=== PATIENT | female | born 1970 | race Caucasian/White ===

== ENCOUNTER 2020-06-18 13:25 | Outpatient (REF) | payer BC, SELFPAY ==
--- NOTE | ~2020-06-18 | MM_ITS ---
EXAMINATION: MM SCREENING DIGITAL BREAST TOMOSYNTHESIS, BILATERAL CLINICAL INFORMATION: Screening. Asymptomatic. The lifetime risk of breast cancer based on the Tyrer-Cuzick Model is 9%. COMPARISON: Mammography: 08/02/2018, 12/05/2016, 05/15/2014 TECHNIQUE: Digital breast tomosynthesis is performed in both the craniocaudal and mediolateral oblique views along with computer-aided detection (CAD). Synthesized 2D images are generated from the tomosynthesis. FINDINGS: There are scattered areas of fibroglandular density (ACR BI-RADS breast composition Category b). There are no significant masses, abnormal calcifications, or other abnormalities. There is chronic stable prominent left axillary node with abundant central fatty hilus similar to prior exams. The skin contours are smooth. MM/MM tomosynthesis screening BI IMPRESSION: No mammographic evidence of malignancy. ASSESSMENT: BI-RADS 2: Benign RECOMMENDATION: Routine annual mammography screening. This patient's information was entered into a reminder system with a target due date for their next mammogram.
== END 2020-06-18 13:26 | disposition home or self-care (01) ==
LOC: HO.MAMMO 13:25
PROVIDERS: Visit Provider Internal Medicine
DX: Z12.31 Encounter for screening mammogram for malignant neoplasm of breast (principal)
CPT/HCPCS: 77063; 77067

== ENCOUNTER 2020-06-26 06:52 | Outpatient (REF) | payer BC, SELFPAY ==
[2020-06-26 07:59] LABS: Alanine Aminotransferase 14 U/L (0-31); Albumin Level 4.3 g/dL (3.5-5.0); Alkaline Phosphatase 64 U/L (39-117); Anion Gap 12 (12-20); Aspartate Amino Transferase 18 U/L (5-31); Bilirubin Total 0.4 mg/dL (0.0-1.0); Blood Urea Nitrogen 15 mg/dL (9-16); Carbon Dioxide 24 mmol/L (22-29); Chloride 109 mmol/L (96-108); Cholesterol 217 mg/dL; Estimated Glomerular Filt Rate > 60; Glucose Fasting 100 mg/dL (60-99); HDL Cholesterol 39 mg/dL; LDL Cholesterol Calculated 142 mg/dl; Potassium 4.3 mmol/L (3.3-5.1); Sodium 141 mmol/L (135-145); Total Protein 7.2 g/dL (6.5-8.0); Triglycerides 183 mg/dL
== END 2020-06-26 06:53 | disposition home or self-care (01) ==
LOC: HO.LAB 06:52
PROVIDERS: PCP Internal Medicine; Visit Provider Internal Medicine
DX: R73.02 Impaired glucose tolerance (oral) (principal)
CPT/HCPCS: 36415; 80053; 80061

== ENCOUNTER 2021-07-31 07:53 | Outpatient (REF) | payer BC, SELFPAY ==
--- NOTE | ~2021-07-31 | MM_ITS ---
EXAMINATION: MM SCREENING DIGITAL BREAST TOMOSYNTHESIS, BILATERAL CLINICAL INFORMATION: Screening. Asymptomatic. The lifetime risk of breast cancer based on the Tyrer-Cuzick Model is 7%. COMPARISON: Mammography: 08/02/2018, 12/05/2016 TECHNIQUE: Digital breast tomosynthesis is performed in both the craniocaudal and mediolateral oblique views along with computer-aided detection (CAD). Synthesized 2D images are generated from the tomosynthesis. FINDINGS: There are scattered areas of fibroglandular density (ACR BI-RADS breast composition Category b). There are no significant masses, abnormal calcifications, or other abnormalities. There are no significant changes from prior exams. MM/MM tomosynthesis screening BI IMPRESSION: No mammographic evidence of malignancy. ASSESSMENT: BI-RADS 1: Negative RECOMMENDATION: Routine annual mammography screening. This patient's information was entered into a reminder system with a target due date for their next mammogram.
== END 2021-07-31 07:54 | disposition home or self-care (01) ==
LOC: HO.MAMMO 07:53
PROVIDERS: PCP Internal Medicine; Visit Provider Internal Medicine
DX: Z12.31 Encounter for screening mammogram for malignant neoplasm of breast (principal)
CPT/HCPCS: 77063; 77067

== ENCOUNTER → 2021-09-19 15:08 | Outpatient (BNVA) | payer BC, SELFPAY | PROVIDERS: PCP Internal Medicine; Visit Provider Obstetrics & Gynecology | DX: Z13.89 Encounter for screening for other disorder (principal) ==

== ENCOUNTER 2021-10-24 15:31 | Outpatient (REF) | payer BC, SELFPAY ==
--- NOTE | ~2021-10-24 | US_ITS ---
EXAMINATION: US PELVIS CLINICAL INFORMATION: Hypertrophy of the uterus COMPARISON: Pelvic ultrasound 05/10/2014 TECHNIQUE: Ultrasound of the pelvis is performed using both transabdominal and transvaginal transducers along with Doppler. Transvaginal imaging is performed due to inadequate visualization transabdominally. FINDINGS: Uterus: The uterus is anteverted and measures 9.6 x 5.3 x 6.3 cm. Nabothian cysts in the cervix. The double wall endometrial thickness is 1.2 mm. The uterus is smooth in contour and has normal myometrial echogenicity. No visible fibroid. Adnexa: Both ovaries are visualized. There is normal color flow to the adnexa. There is no ovarian torsion. There is no pelvic ascites or fluid collection. Right ovary measures 3.8 x 1.9 x 1.6 cm. Physiologic 1.8 cm hemorrhagic right corpus luteum. Left ovary measures 3.0 x 2.0 x 2.2 cm. Physiologic 1.7 cm involuting left corpus luteum. US/US pelvic and transvaginal IMPRESSION: Unremarkable pelvic ultrasound.
== END 2021-10-24 15:32 | disposition home or self-care (01) ==
LOC: HO.US 15:31
PROVIDERS: Visit Provider Obstetrics & Gynecology
DX: N85.2 Hypertrophy of uterus (principal)
CPT/HCPCS: 76830; 76856

== ENCOUNTER 2022-04-07 09:59 | Outpatient (REF) | payer BC, SELFPAY ==
[2022-04-07 10:13] LABS: MANUAL DIFF FLAG NO
[2022-04-07 11:02] LABS: Basophils Absolute Auto 0.1 X10*3/uL (0.0-0.2); Eosinophils Absolute Auto 0.2 X10*3/uL (0.0-0.4); Eosinophils Percent Auto 2.2 % (0-4); Hematocrit 43.2 % (37.0-47.0); Hemoglobin 13.8 g/dl (12.0-16.0); Imm Gran Abs Auto 0.03 X10*3/uL (0.00-0.03); Imm Gran Pct Auto 0.3 % (0.0-0.4); Lymphocytes Percent Auto 33.2 % (20-40); Mean Corpuscular HGB Conc 31.9 g/dl (31.0-35.0); Mean Corpuscular Hemoglobin 29.3 pg (27.0-33.0); Mean Corpuscular Volume 91.7 fL (80.0-98.0); Mean Platelet Volume 10.6 fL (9.4-12.3); Monocytes Absolute Auto 0.7 X10*3/uL (0.1-1.2); Monocytes Percent Auto 7.9 % (2-11); Neutrophils Absolute Auto 5.1 x10*3/uL (2.0-8.3); Neutrophils Percent Auto 55.4 % (45-73); Platelet Count 341 X10*3/uL (160-400); Red Blood Count 4.71 X10*6/uL (4.20-5.50); Red Cell Distribution Width 12.3 % (11.0-16.0); White Blood Count 9.1 X10*3/uL (4.8-10.8)
[2022-04-07 11:33] LABS: Alanine Aminotransferase 15 U/L (0-31); Albumin Level 4.2 g/dL (3.5-5.0); Alkaline Phosphatase 75 U/L (39-117); Anion Gap 11 (12-20); Aspartate Amino Transferase 16 U/L (5-31); Bilirubin Total 0.3 mg/dL (0.0-1.0); Blood Urea Nitrogen 11 mg/dL (9-16); Calcium 9.2 mg/dL (8.4-10.2); Carbon Dioxide 24 mmol/L (22-29); Chloride 109 mmol/L (96-108); Estimated Glomerular Filt Rate > 60; Glucose Random 81 mg/dL (60-115); Potassium 4.5 mmol/L (3.3-5.1); Sodium 139 mmol/L (135-145); Total Protein 6.9 g/dL (6.5-8.0)
== END 2022-04-07 10:00 | disposition home or self-care (01) ==
LOC: HO.XRAY 09:59
PROVIDERS: Absent Provider Physician Assistant; PCP Internal Medicine; Visit Provider Nurse Practitioner
DX: Z01.818 Encounter for other preprocedural examination (principal); M71.331 Other bursal cyst, right wrist
CPT/HCPCS: 36415; 73110; 73130; 80053; 85025

== ENCOUNTER 2022-04-08 08:00 | Day surgery (SDC) | payer BC, SELFPAY ==
[2022-04-03 14:20] VITALS: BMI 36.0
[2022-04-08 08:02] VITALS: BP 163/98; PULSE 83; RESP 20; TEMP 36.4; O2SAT 98
--- NOTE | 2022-04-08 08:35 | P.CONAN_ITS ---
HPI - Anesthesia Eval Consult details Narrative: Screening Colonoscopy [facility] Active Problems Active Problems: All Active Problems (Updated 04/07/22 @ 07:44 by Rickey Sin PA-C) Obese (Acute) Elevated blood pressure reading (Acute) Synovial cyst of right wrist (Acute) Preop examination (Acute) Enlarged uterus (Acute) Well woman exam (Acute) Dyslipidemia (Acute) Polyarthralgia (Acute) Right hip pain (Acute) Right knee pain (Acute) Upper back pain (Acute) Right shoulder pain (Acute) Neck pain (Acute) Impaired glucose tolerance (Acute) Anxiety (Acute) Seasonal allergies (Acute) Depression (Acute) Past Medical History Medical History Anxiety Depression Dyslipidemia Impaired glucose tolerance Neck pain Polyarthralgia Right hip pain Right knee pain Right shoulder pain Seasonal allergies Upper back pain Family History Family History Father Pulmonary fibrosis determined by high resolution computed tomography Mother No problems noted. Paternal Grandmother Stroke Maternal Grandmother Lung cancer Maternal Aunt Lung cancer Maternal Uncle Bladder cancer Family/Other FH: mental illness Family history of problems with anesthesia: No Surgical History Surgical History History of appendectomy History of section History of Problems with Anesthesia: No Social History Social History Housing: House Alcohol intake: current Alcohol intake frequency: holidays/special occasions only Alcohol type: wine Patient Tobacco Use Status: Former Tobacco user Years Smoked: 23 e-Cigarette/Vaping Use: Never Used Are you DNR?: No Advance Directives: No Advance Directives Information Provided: Yes Nutrition Risks: No Nutritional Risk service: No Current occupational status: employed Cognitive needs: No Hearing needs: No Vision needs: Yes Meds Allergies Allergy/AdvReac Type Severity Reaction Status Date / Time bupropion [From WELLBUTRIN] Allergy Severe HIVES Verified 04/03/22 15:51 seasonal allergies Allergy Unknown Unknown Uncoded 04/03/22 15:35 Home Medications Medication Instructions Recorded Confirmed Last Taken Type loratadine 10 mg tablet (Allergy 10 mg PO DAILY 01/30/20 04/03/22 Unknown History Relief (loratadine)) ibuprofen 400 mg tablet 400 mg PO BID 06/28/20 04/03/22 04/04/22 History Exam Exam Date and Time: April 08, 2022 0835 Height,Weight and Vital Signs: Height 5 ft 4 in Weight 95.254 kg Last Vital Signs Temp 97.6 F 04/08/22 08:02 Pulse 83 04/08/22 08:02 Resp 20 04/08/22 08:02 BP 163/98 H 04/08/22 08:02 Pulse Ox 98 04/08/22 08:02 O2 Del Method 04/08/22 08:02 Airway Mallampati Class: II TM Dist: >3cm Neck ROM: Full Loose/Missing/Broken Teeth: No Heart: rrr+[id number] Lungs: cta b/l Assessment and Plan Assessment Anesthesia Assessment: Anesthesia Plan Discussed and Chart Reviewed Final Anesthetic Review Family History of Problems with Anesthesia: No History of Problems with Anesthesia: No NPO: Yes ASA Class: II Final Preanesthetic Review: No Changes in Pt Med Stat, Meds/Allgs Chart Reviewed, Consent Obtained/Reviewed and Anes Risks/Benef Reviewed Patient Risk: Intermediate Procedure Risk: Intermediate Assessment/Block/Sedation in SS: Assess/Block/Sedation-SS Anesthetic Plan Anesthetic Plan: MAC: and Agree w/ Assess. and Plan Disposition: Standard PACU
--- NOTE | 2022-04-08 08:58 | MHC.SHP ---
Pre-Procedural Eval Section A Date of Service: 04/08/22 Section B Chief Complaint: screening Details of Present Illness: also has chronic diarrhea, FH of colon polyps Relevant Family History (Specify if Yes): Yes Relevant Social History: None Present Medications: see Short Stay Collaborative assessment Medical History: Significant History (Anxiety Depression Dyslipidemia Impaired glucose tolerance Neck pain Polyarthralgia Right hip pain Right knee pain Right shoulder pain Seasonal allergies Upper back pain) History of Previous Operations: Relevant previous surgery/procedure and date(s) (appendectomy, c section ) Allergies: Allergies Allergy/AdvReac Type Severity Reaction Status Date / Time bupropion [From WELLBUTRIN] Allergy Severe HIVES Verified 04/03/22 15:51 seasonal allergies Allergy Unknown Unknown Uncoded 04/03/22 15:35 Review of Systems Sugical H&P ROS: Negative: Constitution, Cardiovascular, Respiratory, Neurological, Psychiatric, Hem-Onc, Allergic/Immunologic, Gastrointestinal, Genitourinary, Musculoskeletal, Integumentary, Endocrine and Eyes/Ears/Nose/Throat Exam Surgical H&P Exam: Normal: HEENT, Normal: Heart, Normal: Lungs, Normal: Extremities, Normal: Abdomen, Normal: Skin and Normal: Neurological Plan Diagnosis/Plan: Unchanged I have reviewed the history and physical and performed a pertinent physical examination on my patient. No changes have occurred unless specified. Time Spent With Patient Time: Total time managing care of this patient today ____ minutes.
--- NOTE | 2022-04-08 09:32 | W.PM.OPN ---
Operative Note Operative Note Date of Service: 04/08/22 Narrative: Operative Information Procedure Description: Colonoscopy Indication: screening Anesthesia: MAC COLONOSCOPY Instrument: Olympus variable stiffness pediatric scope 190L Colonoscopy Monitoring: Vital signs and clinical assessment, continuous EKG monitoring, Pulse oximetry, Carbon Dioxide monitoring and blood pressure monitoring were done throughout the procedure. Colon withdrawal time was 12 minutes. Procedure: The patient was placed in the left lateral decubitis position and pre-procedure medications were administered. After a digital rectal examination of the ano-rectum, the video colonoscope was inserted into the rectum and advanced through the colon to the cecum/TI. The colonoscope was slowly withdrawn in a retrograde panoramic fashion and the colon mucosa was carefully examined including a retroflexed view of the rectum. Findings and interventions are described below. Procedure Difficulty: east Findings: Terminal Ileum-normal, bx taken Cecum: granular appearance, bx taken, 10 mm sessile polyp removed with cold snare Ascending Colon: normal Transverse Colon -normal Descending Colon:normal Sigmoid Colon: moderate diverticulosis, random bx taken Rectum: Retroflexion with small internal hemorrhoids, grade I Anorectum - normal Colon preparation: Bellona Bowel Preparation Scale Right colon; 3 Transverse colon: 2 Left colon; 2 (0 = Unprepared colon segment with mucosa not seen due to solid stool that cannot be cleared. 1 = Portion of mucosa of the colon segment seen, but other areas of the colon segment not well seen due to staining, residual stool and/or opaque liquid. 2 = Minor amount of residual staining, small fragments of stool and/or opaque liquid, but mucosa of colon segment seen well. 3 = Entire mucosa of colon segment seen well with no residual staining, small fragments of stool or opaque liquid) Impression and Post Procedure Diagnosis: polyp internal hemorrhoids diverticular disease Plan: High fiber diet leaflet Avoid straining at stool, epsom salts and sitz bath, anusol supps or cream Repeat Colonoscopy in 5 years if adenomatous polyp, 10 yrs if benign or earlier if clinically indicated consider EGD if ongoing issues with diarrheal symptoms Above findings were reviewed with the patient and relevant handouts were provided if indicated.
[2022-04-08 09:35] VITALS: BP 125/66; PULSE 78; RESP 16; TEMP 36.1; O2SAT 98
[2022-04-08 09:50] VITALS: BP 135/77; PULSE 65; RESP 16; TEMP 36.2; O2SAT 96
== END 2022-04-08 10:19 ==
LOC: HO.SSS 08:00
PROVIDERS: PCP Internal Medicine; Visit Provider Internal Medicine Gastroenterology
PROC: 0DJD8ZZ Inspection of Lower Intestinal Tract, Via Natural or Artificial Opening Endoscopic (ICD-10-PCS; CPT 45378; principal; 2022-04-08 09:20)
DX: Z12.11 Encounter for screening for malignant neoplasm of colon (principal); Z83.71 Family history of colonic polyps; K51.40 Inflammatory polyps of colon without complications; K57.30 Diverticulosis of large intestine without perforation or abscess without bleeding; K64.0 First degree hemorrhoids; K59.09 Other constipation; R73.02 Impaired glucose tolerance (oral); J30.2 Other seasonal allergic rhinitis; Z79.899 Other long term (current) drug therapy; Z79.1 Long term (current) use of non-steroidal anti-inflammatories (NSAID); Z88.8 Allergy status to other drugs, medicaments and biological substances; Z87.891 Personal history of nicotine dependence
CPT/HCPCS: 45385; 45380; 88305

== ENCOUNTER 2022-08-06 07:39 | Outpatient (REF) | payer BC, SELFPAY ==
--- NOTE | ~2022-08-06 | MM_ITS ---
EXAMINATION: MM SCREENING DIGITAL BREAST TOMOSYNTHESIS, BILATERAL CLINICAL INFORMATION: Screening. Asymptomatic. The lifetime risk of breast cancer based on the Tyrer-Cuzick Model is 7.1%. COMPARISON: Mammography: July 31, 2021 and studies dating back to November 07, 2011 TECHNIQUE: Digital breast tomosynthesis is performed in both the craniocaudal and mediolateral oblique views along with computer-aided detection (CAD). Synthesized 2D images are generated from the tomosynthesis. FINDINGS: There are scattered areas of fibroglandular density (ACR BI-RADS breast composition Category b). There are no significant masses, abnormal calcifications, or other abnormalities. MM/MM tomosynthesis screening BI IMPRESSION: No significant changes from prior exam. ASSESSMENT: BI-RADS 1: Negative RECOMMENDATION: Routine annual mammography screening. This patient's information was entered into a reminder system with a target due date for their next mammogram.
== END 2022-08-06 07:40 | disposition home or self-care (01) ==
LOC: HO.MAMMO 07:39
PROVIDERS: PCP Internal Medicine; Visit Provider Internal Medicine
DX: Z12.31 Encounter for screening mammogram for malignant neoplasm of breast (principal)
CPT/HCPCS: 77063; 77067

== ENCOUNTER 2023-01-14 07:52 | Outpatient (AMB) | payer BC, SELFPAY ==
[2023-01-14 07:57] VITALS: BP 144/82; PULSE 71; O2SAT 98; BMI 38.3
--- NOTE | 2023-01-14 07:57 | MHC.PC.OV ---
Vital Signs 01/14/23 07:57 01/14/23 08:18 Height 5 ft 4 in Weight 223 lb BMI 38.3 BP 144/82 H 160/90 H Blood Pressure Location Lt brachial Position Sitting Pulse 71 Pulse Source Pulse Oximeter Pulse Oximetry (%) 98 Oxygen Delivery Method Room Air Intake Visit Reasons: Follow-up blood pressure Intake Note: Patient did have coffee this morning, and was drinking it as we spoke. Only mentioning it because her BP ran a little high today. Allergies bupropion [From WELLBUTRIN] Allergy (Severe, Verified 01/14/23 08:04) HIVES seasonal allergies Allergy (Unknown, Uncoded 01/14/23 07:57) Unknown Medication List - Last Reconciled 01/14/23 by Rickey Sin PA-C escitalopram oxalate 10 mg PO DAILY escitalopram oxalate 20 mg PO DAILY loratadine (Allergy Relief (loratadine)) 10 mg PO DAILY Tobacco use date assessed: 10/15/22 Dental Screening Dental Screen Date: 01/14/23 Did you have a dental visit in the last 12 months?: No Did you have a dental problem in the last 6 months where you did not have access to dental care?: No Was dental information given to patient?: No HPI Follow-up blood pressure HPI Details Patient is a 52-year-old female here today for a follow-up visit. Patient's past medical history significant for obesity, elevated blood pressure readings, generalized anxiety disorder and depression.. .. Elevated blood pressure readings: Patient's blood pressure remains elevated today in office. We did discuss possible need to start blood pressure medication. She does report she is under a lot of stress at home and at her place of employment. She will commence blood pressure monitoring at home and if elevated will let us know and we will start low-dose blood pressure medication. . Obesity: Patient does understand her BMI is well over 30 will work on being more physically active and adapt to better eating habits to reduce her weight PFSH Medical History Enlarged uterus Dyslipidemia Polyarthralgia Right hip pain Right knee pain Upper back pain Right shoulder pain Neck pain Impaired glucose tolerance Anxiety Seasonal allergies Depression Surgical History History of section History of appendectomy Family History Father Pulmonary fibrosis determined by high resolution computed tomography Mother No problems noted. Paternal Grandmother Stroke Maternal Grandmother Lung cancer Maternal Aunt Lung cancer Maternal Uncle Bladder cancer Family/Other FH: mental illness Social History Housing: House Alcohol intake: current Alcohol intake frequency: holidays/special occasions only Alcohol type: wine Patient Tobacco Use Status: Former Tobacco user Quit Date: 2018 Tobacco use type: Cigarette Years Smoked: 23 e-Cigarette/Vaping Use: Never Used service: No Current occupational status: employed Current occupation: [employer] Cognitive needs: No Hearing needs: No Vision needs: Yes Questionnaire PHQ-9 Over the last 2 weeks, how often have you been bothered by any of the following problems? 1. Little interest or pleasure in doing things: more than half the days 2. Feeling down, depressed, or hopeless: more than half the days 3. Trouble falling or staying asleep, or sleeping too much: not at all 4. Feeling tired or having little energy: not at all 5. Poor appetite or overeating: not at all 6. Feeling bad about yourself - or that you are a failure or have let yourself or your family down: not at all 7. Trouble concentrating on things, such as reading the newspaper or watching television: not at all 8. Moving or speaking so slowly that other people could have noticed. Or the opposite - being so fidgety or restless that you have been moving around a lot more than usual: not at all 9. Thoughts that you would be better off or of hurting yourself in some way: not at all Total score: 4 Depression Screening Interpretation: Negative 08274 - PHQ-9 Billing: Yes Source: Developed by Drs. Jesse Young, Irena Renteria, Carlton Hunter and colleagues, with an educational jerica from [employer]. Thrive Questionnaire Date Thrive assessed: 10/15/22 AUDIT C Alcohol Use Questionnaire (AUDIT-C) 1. How often do you have a drink containing alcohol?: Monthly or less 2. How many drinks containing alcohol do you have on a typical day when you are drinking?: 1 or 2 3. How often do you have six or more drinks on one occasion?: Never Total Score: 1 NELI-7 AMB Questionnaire NELI-7 Date NELI - 7 assessed: 10/15/22 Source: Developed by Drs. Jesse Young, Irena Renteria, Carlton Hunter and colleagues, with an educational jerica from [employer]. Review of Systems Const Denies headache(s) Eyes Denies loss of vision ENT Denies vertigo, Denies dizziness, Denies headache(s) and Denies sore throat Card Denies chest pain, Denies leg edema and Denies lightheadedness Resp Denies cough, Denies hemoptysis and Denies wheezing GI Denies abdominal pain, Denies melena, Denies constipation, Denies diarrhea and Denies vomiting Denies urinary frequency, Denies dysuria and Denies urinary urgency Musc Denies arthralgias, Denies joint swelling, Denies numbness and Denies tingling Neuro Denies Abnormal speech present, Denies behavioral changes, Denies vertigo, Denies dizziness, Denies headache(s), Denies loss of vision, Denies memory loss, Denies numbness and Denies tingling Psych Denies anxiety, Denies behavioral changes, Denies depression, Denies memory loss and Denies panic attacks Dima/Lymph Denies easy bleeding and Denies easy bruising Aller/Immun Denies wheezing Physical exam (Primary Care) Vital Signs: Last Vital Signs Pulse 71 01/14/23 07:57 BP 160/90 H 01/14/23 08:18 Pulse Ox 98 01/14/23 07:57 Oxygen Delivery Method Room Air 01/14/23 07:57 BMI result Body Mass Index 38.3 Tobacco/Smoking Status: Tobacco use Status Tobacco use date assessed 10/15/22 01/14/23 08:02 Patient Tobacco Use Status Former Tobacco user 01/14/23 08:02 Tobacco use type Cigarette 01/14/23 08:02 e-Cigarette/Vaping Use Never Used 01/14/23 08:02 PHQ-9: PHQ-9 Score PHQ-9: Total score 4 01/14/23 08:05 Depression Screening Interpretation: Negative Thrive Assessment: Date of Thrive Assessment Date Thrive assessed 10/15/22 01/14/23 08:02 Const General: healthy appearing, no acute distress, alert and awake Nutritional Appearance: well nourished Orientation/consciousness: oriented to person, oriented to place and oriented to time HENMT Ears: TM's normal bilaterally General nose exam: Normal nasal mucous membranes and turbinates present Eyes Conjunctivae: conjunctivae normal Sclerae: sclerae normal Pupils: Equal, round and reactive pupils present Neck Neck: Yes no lymphadenopathy and Yes no JVD Thyroid: Thyroid normal Carotids: no bruits Resp Effort & Inspection: normal respiratory effort and not tachypneic Auscultation: no crackles, no rales, no rhonchi and no wheezes Cardio Rate: regular rate Rhythm: regular rhythm Heart sounds: no murmurs and normal S1 and S2 GI Palpation (GI): Soft to palpation, nontender, no hepatomegaly and no splenomegaly Auscultation: normal bowel sounds Skin General skin exam: no rashes or lesions noted and dry skin Neuro General: oriented to person, oriented to place and oriented to time Cranial nerves: Yes Equal, round and reactive pupils present Speech: No Abnormal speech present Gait exam (Neuro): Normal gait present Motor exam (neuro): no tremor noted Extrem Right upper extremity: full ROM Left upper extremity: full ROM Right lower extremity: full ROM; no edema Left lower extremity: full ROM; no edema Psych Mental Status: mental status grossly normal Speech and movement: Normal speech and movement present Affect: normal affect Attitude: cooperative Thought process: Normal thought process present Assessment and Plan Assessment & Plan (1) Elevated blood pressure reading: Code(s): R03.0 - Elevated blood-pressure reading, without diagnosis of hypertension Plan: Continues to have elevated blood pressure readings here in the office. She relates this to stress in her personal life. Advised to monitor blood pressure with goal blood pressure to be below 140/90 at home. If elevated will consider starting low-dose blood pressure medication. (2) Dyslipidemia: Code(s): E78.5 - Hyperlipidemia, unspecified Plan: Noted borderline high total cholesterol on most recent fasting lipids. Will recheck cholesterol panel with goal total cholesterol to be below 200 and LDL below 160. (3) Obese: Code(s): E66.9 - Obesity, unspecified Qualifiers: Body mass index: BMI 37.0-37.9 Obesity classification: adult class 2 (BMI 35 - 39.9) Obesity type: due to excess calories Serious obesity comorbidity presence: without serious comorbidity Qualified Code(s): E66.09 - Other obesity due to excess calories; Z68.37 - Body mass index [BMI] 37.0-37.9, adult Plan: Patient does understand her BMI is over 30 will work on being more physically active and adapting to better eating habits to reduce her weight (4) Anxiety: Code(s): F41.9 - Anxiety disorder, unspecified Plan: Patient continues on 30 mg of Lexapro with decent affect on reducing her anxiety. Will consider speaking with a mental health therapist . Coding Level of Care Code Est Pt Level 4 (26632) Diagnoses Elevated blood pressure reading R03.0 Dyslipidemia E78.5 Class 2 obesity due to excess calories without serious comorbidity with body mass index (BMI) of 37.0 to 37.9 in adult E66.09; Z68.37 Body mass index: BMI 37.0-37.9 Obesity classification: adult class 2 (BMI 35 - 39.9) Obesity type: due to excess calories Serious obesity comorbidity presence: without serious comorbidity Anxiety F41.9
[2023-01-14 08:18] VITALS: BP 160/90
== END 2023-01-14 08:21 | disposition home or self-care (01) ==
PROVIDERS: PCP Internal Medicine; Visit Provider Physician Assistant
DX: R03.0 Elevated blood-pressure reading, without diagnosis of hypertension (principal); E78.5 Hyperlipidemia, unspecified; E66.09 Other obesity due to excess calories; Z68.37 Body mass index [BMI] 37.0-37.9, adult; F41.9 Anxiety disorder, unspecified
CPT/HCPCS: 99214

== ENCOUNTER 2023-02-24 07:23 | Outpatient (REF) | payer BC, SELFPAY ==
[2023-02-24 07:50] LABS: Hematocrit 42.6 % (37.0-47.0); Hemoglobin 13.4 g/dl (12.0-16.0); Mean Corpuscular HGB Conc 31.5 g/dl (31.0-35.0); Mean Corpuscular Hemoglobin 29.2 pg (27.0-33.0); Mean Corpuscular Volume 92.8 fL (80.0-98.0); Mean Platelet Volume 10.3 fL (9.4-12.3); Platelet Count 341 X10*3/uL (160-400); Red Blood Count 4.59 X10*6/uL (4.20-5.50); Red Cell Distribution Width 12.7 % (11.0-16.0); White Blood Count 10.3 X10*3/uL (4.8-10.8)
[2023-02-24 07:56] LABS: Estimated Average Glucose 108 mg/dL; Hemoglobin A1c % 5.4 % (<6.0)
[2023-02-24 08:16] LABS: Alanine Aminotransferase 12 U/L (0-31); Albumin Level 3.8 g/dL (3.5-5.0); Alkaline Phosphatase 71 U/L (39-117); Anion Gap 10 (12-20); Aspartate Amino Transferase 17 U/L (5-31); Bilirubin Total 0.3 mg/dL (0.0-1.0); Blood Urea Nitrogen 16 mg/dL (9-16); Calcium 9.1 mg/dL (8.4-10.2); Carbon Dioxide 26 mmol/L (22-29); Chloride 111 mmol/L (96-108); Cholesterol 198 mg/dL (<200); Estimated Glomerular Filt Rate > 60; Glucose Fasting 98 mg/dL (60-99); HDL Cholesterol 34 mg/dL (>40); LDL Cholesterol Calculated 138 mg/dL (<100); Potassium 3.9 mmol/L (3.3-5.1); Sodium 143 mmol/L (135-145); Total Protein 7.1 g/dL (6.5-8.0); Triglycerides 133 mg/dL (<150)
== END 2023-02-24 07:24 | disposition home or self-care (01) ==
LOC: HO.LAB 07:23
PROVIDERS: PCP Physician Assistant; Visit Provider Physician Assistant
DX: R73.02 Impaired glucose tolerance (oral) (principal); E78.5 Hyperlipidemia, unspecified
CPT/HCPCS: 36415; 80053; 80061; 83036; 85027

== ENCOUNTER 2023-02-26 08:20 | Outpatient (AMB) | payer BC, SELFPAY ==
[2023-02-26 08:29] VITALS: BP 148/92; PULSE 71; O2SAT 98; BMI 37.6
--- NOTE | 2023-02-26 08:29 | MHC.PC.OV ---
Vital Signs 02/26/23 08:29 Height 5 ft 4 in Weight 219 lb BMI 37.6 BP 148/92 H Blood Pressure Location Lt brachial Position Sitting Pulse 71 Pulse Source Pulse Oximeter Pulse Oximetry (%) 98 Oxygen Delivery Method Room Air Intake Visit Reasons: f/u HTN Allergies bupropion [From WELLBUTRIN] Allergy (Severe, Verified 02/26/23 08:44) HIVES seasonal allergies Allergy (Unknown, Uncoded 02/26/23 08:29) Unknown Medication List - Last Reconciled 02/26/23 by Rickey Sin PA-C calcium carbonate (Calcium 500) 500 mg PO DAILY escitalopram oxalate 10 mg PO DAILY escitalopram oxalate 20 mg PO DAILY loratadine (Allergy Relief (loratadine)) 10 mg PO DAILY Tobacco use date assessed: 10/15/22 Dental Screening Dental Screen Date: 02/26/23 Did you have a dental visit in the last 12 months?: No Did you have a dental problem in the last 6 months where you did not have access to dental care?: No Was dental information given to patient?: No HPI f/u HTN HPI Details Patient is a 52-year-old female here today for a follow-up visit. Patient's past medical history significant for obesity, elevated blood pressure readings, generalized anxiety disorder and depression.. .. Elevated blood pressure readings: Patient's blood pressure remains elevated today in office. She has been monitoring her blood pressure at home and reports readings 145-150 systolic. She fortunately is asymptomatic without any headaches, chest pain or palpitations. She is now willing to start blood pressure medication. . Obesity: Patient does understand her BMI is well over 30 will work on being more physically active and adapt to better eating habits to reduce her weight .. Borderline high total cholesterol: Most recent lipid showing much improved total cholesterol and LDL. Has been making lifestyle changes to reduce her cholesterol. Fasting blood sugar improved as well. Laboratory Tests 06/26/20 06/26/20 02/24/23 07:03 07:03 07:38 RBC 4.59 Creatinine 0.85 Fasting Glucose 100 H Hemoglobin A1c % 5.4 Cholesterol 217 198 LDL Cholesterol, C alc 142 138 H 02/24/23 07:38 RBC Creatinine Fasting Glucose 98 Hemoglobin A1c % Cholesterol LDL Cholesterol, C alc [facility] Medical History Enlarged uterus Dyslipidemia Polyarthralgia Right hip pain Right knee pain Upper back pain Right shoulder pain Neck pain Impaired glucose tolerance Anxiety Seasonal allergies Depression Surgical History History of section History of appendectomy Family History Father Pulmonary fibrosis determined by high resolution computed tomography Mother No problems noted. Paternal Grandmother Stroke Maternal Grandmother Lung cancer Maternal Aunt Lung cancer Maternal Uncle Bladder cancer Family/Other FH: mental illness Social History Housing: House Alcohol intake: current Alcohol intake frequency: holidays/special occasions only Alcohol type: wine Patient Tobacco Use Status: Former Tobacco user Quit Date: 2018 Tobacco use type: Cigarette Years Smoked: 23 e-Cigarette/Vaping Use: Never Used service: No Current occupational status: employed Current occupation: [employer] Cognitive needs: No Hearing needs: No Vision needs: Yes Questionnaire PHQ-9 Over the last 2 weeks, how often have you been bothered by any of the following problems? 1. Little interest or pleasure in doing things: more than half the days 2. Feeling down, depressed, or hopeless: more than half the days 3. Trouble falling or staying asleep, or sleeping too much: not at all 4. Feeling tired or having little energy: not at all 5. Poor appetite or overeating: not at all 6. Feeling bad about yourself - or that you are a failure or have let yourself or your family down: not at all 7. Trouble concentrating on things, such as reading the newspaper or watching television: not at all 8. Moving or speaking so slowly that other people could have noticed. Or the opposite - being so fidgety or restless that you have been moving around a lot more than usual: not at all 9. Thoughts that you would be better off or of hurting yourself in some way: not at all Total score: 4 Depression Screening Interpretation: Negative Depression Screening Done: Yes 52570 - PHQ-9 Billing: Yes Source: Developed by Drs. Jesse Young, Irena BCarlton Aguero and colleagues, with an educational jerica from [employer]. Thrive Questionnaire Date Thrive assessed: 10/15/22 AUDIT C Alcohol Use Questionnaire (AUDIT-C) 1. How often do you have a drink containing alcohol?: Monthly or less 2. How many drinks containing alcohol do you have on a typical day when you are drinking?: 1 or 2 3. How often do you have six or more drinks on one occasion?: Never Total Score: 1 NELI-7 AMB Questionnaire NELI-7 Date NELI - 7 assessed: 10/15/22 Source: Developed by Drs. Jesse Young, Carlton Marie and colleagues, with an educational jerica from [employer]. Review of Systems Const Denies headache(s) Eyes Denies loss of vision ENT Denies vertigo, Denies dizziness, Denies headache(s) and Denies sore throat Card Denies chest pain, Denies leg edema and Denies lightheadedness Resp Denies cough, Denies hemoptysis and Denies wheezing GI Denies abdominal pain, Denies melena, Denies constipation, Denies diarrhea and Denies vomiting Denies urinary frequency, Denies dysuria and Denies urinary urgency Musc Denies arthralgias, Denies joint swelling, Denies numbness and Denies tingling Neuro Denies Abnormal speech present, Denies behavioral changes, Denies vertigo, Denies dizziness, Denies headache(s), Denies loss of vision, Denies memory loss, Denies numbness and Denies tingling Psych Denies anxiety, Denies behavioral changes, Denies depression, Denies memory loss and Denies panic attacks Dima/Lymph Denies easy bleeding and Denies easy bruising Aller/Immun Denies wheezing Physical exam (Primary Care) Vital Signs: Last Vital Signs Pulse 71 02/26/23 08:29 BP 148/92 H 02/26/23 08:29 Pulse Ox 98 02/26/23 08:29 Oxygen Delivery Method Room Air 02/26/23 08:29 BMI result Body Mass Index 37.6 BMI Assessment/Plan discussion: High Tobacco/Smoking Status: Tobacco use Status Tobacco use date assessed 10/15/22 02/26/23 08:34 Patient Tobacco Use Status Former Tobacco user 02/26/23 08:34 Tobacco use type Cigarette 02/26/23 08:34 e-Cigarette/Vaping Use Never Used 02/26/23 08:34 PHQ-9: PHQ-9 Score PHQ-9: Total score 4 02/26/23 08:34 Depression Screening Interpretation: Negative Thrive Assessment: Date of Thrive Assessment Date Thrive assessed 10/15/22 02/26/23 08:34 Const General: healthy appearing, no acute distress, alert and awake Nutritional Appearance: well nourished Orientation/consciousness: oriented to person, oriented to place and oriented to time HENMT Ears: TM's normal bilaterally General nose exam: Normal nasal mucous membranes and turbinates present Eyes Conjunctivae: conjunctivae normal Sclerae: sclerae normal Pupils: Equal, round and reactive pupils present Neck Neck: Yes no lymphadenopathy and Yes no JVD Thyroid: Thyroid normal Carotids: no bruits Resp Effort & Inspection: normal respiratory effort and not tachypneic Auscultation: no crackles, no rales, no rhonchi and no wheezes Cardio Rate: regular rate Rhythm: regular rhythm Heart sounds: no murmurs and normal S1 and S2 GI Palpation (GI): Soft to palpation, nontender, no hepatomegaly and no splenomegaly Auscultation: normal bowel sounds Skin General skin exam: no rashes or lesions noted and dry skin Neuro General: oriented to person, oriented to place and oriented to time Cranial nerves: Yes Equal, round and reactive pupils present Speech: No Abnormal speech present Gait exam (Neuro): Normal gait present Motor exam (neuro): no tremor noted Extrem Right upper extremity: full ROM Left upper extremity: full ROM Right lower extremity: full ROM; no edema Left lower extremity: full ROM; no edema Psych Mental Status: mental status grossly normal Speech and movement: Normal speech and movement present Affect: normal affect Attitude: cooperative Thought process: Normal thought process present Assessment and Plan Assessment & Plan (1) HTN (hypertension): Code(s): I10 - Essential (primary) hypertension Qualifiers: Hypertension type: primary hypertension Qualified Code(s): I10 - Essential (primary) hypertension Plan: Patient's blood pressure remains slightly elevated above 140/90. She is now willing to start blood pressure medication. Will start off with low-dose lisinopril 5 mg and up titrate from there. Goal blood pressures to be below 140/90 (2) Obese: Code(s): E66.9 - Obesity, unspecified Qualifiers: Obesity type: due to excess calories Obesity classification: adult class 2 (BMI 35 - 39.9) Serious obesity comorbidity presence: without serious comorbidity Body mass index: BMI 37.0-37.9 Qualified Code(s): E66.09 - Other obesity due to excess calories; Z68.37 - Body mass index [BMI] 37.0-37.9, adult Plan: She does understand her BMI is over 30 will continue working on being more physically active and adapting to better eating habits to reduce her weight. (3) Borderline high cholesterol: Code(s): E78.9 - Disorder of lipoprotein metabolism, unspecified Plan: Patient's fasting lipid panel much improved since changing her diet. Will continue on lifestyle/ diet modifications to control her borderline high total cholesterol. Medications: New lisinopril 5 mg PO DAILY 30 days 30 tabs 3RF I10 - Essential (primary) hypertension Coding Level of Care Code Est Pt Level 4 (86690) Diagnoses Primary hypertension I10 Hypertension type: primary hypertension Class 2 obesity due to excess calories without serious comorbidity with body mass index (BMI) of 37.0 to 37.9 in adult E66.09; Z68.37 Obesity type: due to excess calories Obesity classification: adult class 2 (BMI 35 - 39.9) Serious obesity comorbidity presence: without serious comorbidity Body mass index: BMI 37.0-37.9 Borderline high cholesterol E78.9
== END 2023-02-26 09:02 | disposition home or self-care (01) ==
PROVIDERS: PCP Internal Medicine; Visit Provider Physician Assistant
DX: I10 Essential (primary) hypertension (principal); E66.09 Other obesity due to excess calories; Z68.37 Body mass index [BMI] 37.0-37.9, adult; E78.9 Disorder of lipoprotein metabolism, unspecified
CPT/HCPCS: 99214

== ENCOUNTER 2023-04-07 08:37 | Outpatient (AMB) | payer BC, SELFPAY ==
[2023-04-07 08:44] VITALS: BP 122/70; BMI 37.5
--- NOTE | 2023-04-07 08:44 | MHC.OFFVIS ---
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 No complaints. Last Pap/HPV was negative in 03/07 Last Mammogram was BI-RADS 1 in 08/10 Last Colonoscopy was done in 04/10, the recommendation was to repeat in 10 years [facility] Medical History Enlarged uterus Dyslipidemia Polyarthralgia Right hip pain Right knee pain Upper back pain Right shoulder pain Neck pain Impaired glucose tolerance Anxiety Seasonal allergies Depression Surgical History History of section History of appendectomy Family History Father Pulmonary fibrosis determined by high resolution computed tomography Mother No problems noted. Paternal Grandmother Stroke Maternal Grandmother Lung cancer Maternal Aunt Lung cancer Maternal Uncle Bladder cancer Family/Other FH: mental illness Social History Housing: House Alcohol intake: current Alcohol intake frequency: holidays/special occasions only Alcohol type: wine Patient Tobacco Use Status: Former Tobacco user Quit Date: 2018 Tobacco use type: Cigarette Years Smoked: 23 e-Cigarette/Vaping Use: Never Used service: No Current occupational status: employed Current occupation: [employer] Cognitive needs: No Hearing needs: No Vision needs: Yes Female Reproductive History Menstrual Date of last menstrual period: 03/24/23 Total pregnancies: 4 Full term: 3 Number of Living Children: 3 Ab spontaneous: 1 Date of last pap smear: 03/08/18 Date of Mammogram: 08/06/22 Review of Systems Const All systems reviewed & are unremarkable except as noted in HPI and below Card Reports as per HPI Resp Reports as per HPI GI Reports as per HPI and Reports no additional complaints Reports as per HPI Physical Exam Vital Signs: Last Vital Signs BP 122/70 04/07/23 08:44 BMI result Body Mass Index 37.5 Const General: cooperative, healthy appearing and comfortable Chest Chest palpation & inspection: normal inspection of the chest and normal palpation of entire chest wall Breast/axilla inspection: normal inspection of the breasts and normal inspection of the axillae Breast/axilla palpation: normal palpation of the breasts, normal palpation of the axillae and no axillary lymphadenopathy Resp Effort & Inspection: normal respiratory effort Auscultation: clear to auscultation bilaterally Percussion: percussion normal Cardio Palpation: normal PMI Rate: regular rate Rhythm: regular rhythm Heart sounds: no murmurs and no rubs Peripheral pulses: Peripheral pulses 2+ throughout GI Inspection: Yes normal to inspection Palpation (GI): Soft to palpation, nontender, no guarding, not rigid and No hepatosplenomegaly present Percussion: Yes normal to percussion Auscultation: normal bowel sounds Rectal Exam - Female: deferred General: Yes bladder normal to palpation External Female Exam: No lesion Speculum Exam - Vagina: normal appearance of the vagina, normal palpation, normal vaginal discharge and not erythematous Speculum Exam - Cervix: normal appearance of the cervix and normal palpation Bimanual exam- vagina & uterus: normal bimanual exam, normal palpation, uterine size normal, bladder normal to palpation, consistency normal and normal palpation Bimanual Exam- Adnexa, other: normal adnexae, no masses and no tenderness Assessment & Plan Assessment & Plan (1) Well woman exam: Code(s): Z01.419 - Encounter for gynecological examination (general) (routine) without abnormal findings Plan: Cotesting done. Instructions given to patient to schedule her next screening mammogram in 08/11. Counseled the patient about the recommended dietary allowance of 1000 mg of Calcium & 600 IU of vitamin D. The patient was instructed to perform monthly self-breast exams and to schedule an annual exam in a year; All questions answered and the patient verbalized understanding. Instructed the patient to schedule annual exam in a year Coding Level of Care Code Est Pt Prev Care 40-64y(31482) Diagnoses Well woman exam Z01.419
== END 2023-04-07 09:10 | disposition home or self-care (01) ==
PROVIDERS: PCP Internal Medicine; Visit Provider Obstetrics & Gynecology
DX: Z01.419 Encounter for gynecological examination (general) (routine) without abnormal findings (principal)
CPT/HCPCS: 99396

== ENCOUNTER 2023-04-07 08:37 | Outpatient (REF) | payer BC, SELFPAY ==
[2023-04-11 03:33] LABS: HPV mRNA E6/E7 rflx Not Detected (Not Detected)
== END 2023-04-07 08:38 | disposition home or self-care (01) ==
LOC: HO.LNP 08:37
PROVIDERS: PCP Internal Medicine; Visit Provider Obstetrics & Gynecology
DX: Z01.419 Encounter for gynecological examination (general) (routine) without abnormal findings (principal); Z11.51 Encounter for screening for human papillomavirus (HPV)
CPT/HCPCS: 87624; 88142

== ENCOUNTER 2023-04-22 07:51 | Outpatient (AMB) | payer BC, SELFPAY ==
[2023-04-22 08:12] VITALS: BP 128/82; PULSE 72; O2SAT 98; BMI 38.0
--- NOTE | 2023-04-22 08:12 | MHC.PC.OV ---
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 Accompanied by: Self / Same As Patient Allergies bupropion [From WELLBUTRIN] Allergy (Severe, Verified 04/22/23 08:21) HIVES seasonal allergies Allergy (Unknown, Uncoded 04/22/23 08:13) Unknown Medication List - Last Reconciled 04/22/23 by Rickey Sin PA-C calcium carbonate (Calcium 500) 500 mg PO DAILY escitalopram oxalate 20 mg PO DAILY 90 days escitalopram oxalate 10 mg PO DAILY 90 days lisinopril 5 mg PO DAILY 30 days loratadine (Allergy Relief (loratadine)) 10 mg PO DAILY Tobacco use date assessed: 04/22/23 Dental Screening Dental Screen Date: 04/22/23 Did you have a dental visit in the last 12 months?: No Did you have a dental problem in the last 6 months where you did not have access to dental care?: No Was dental information given to patient?: No HPI f/u HTN HPI Details Patient is a 52-year-old female here today for a follow-up visit. Patient's past medical history significant for obesity, hypertension, borderline high cholesterol, generalized anxiety disorder and depression.. Concern--< continues to have cyst over her right wrist. She does report from it is painful especially when doing a lot of typing at work. She will try conservative treatment such as wrist splint and topical NSAID. Will consider occupational therapy . Hypertension: At last visit we discussed her elevated blood pressure readings and she was willing to start lisinopril 5 mg. Pressures have been met better and denies any side effect blood pressure medication. .. Depression/ anxiety: Has been fairly stable with current dose of SSRI therapy. [facility] Medical History Enlarged uterus Dyslipidemia Polyarthralgia Right hip pain Right knee pain Upper back pain Right shoulder pain Neck pain Impaired glucose tolerance Anxiety Seasonal allergies Depression Surgical History History of section History of appendectomy Family History Father Pulmonary fibrosis determined by high resolution computed tomography Mother No problems noted. Paternal Grandmother Stroke Maternal Grandmother Lung cancer Maternal Aunt Lung cancer Maternal Uncle Bladder cancer Family/Other FH: mental illness Social History Housing: House Alcohol intake: current Alcohol intake frequency: holidays/special occasions only Alcohol type: wine Patient Tobacco Use Status: Former Tobacco user Quit Date: 2018 Tobacco use type: Cigarette Years Smoked: 23 e-Cigarette/Vaping Use: Never Used service: No Current occupational status: employed Current occupation: [employer] Cognitive needs: No Hearing needs: No Vision needs: Yes Questionnaire PHQ-9 Over the last 2 weeks, how often have you been bothered by any of the following problems? 1. Little interest or pleasure in doing things: more than half the days 2. Feeling down, depressed, or hopeless: more than half the days 3. Trouble falling or staying asleep, or sleeping too much: not at all 4. Feeling tired or having little energy: not at all 5. Poor appetite or overeating: not at all 6. Feeling bad about yourself - or that you are a failure or have let yourself or your family down: not at all 7. Trouble concentrating on things, such as reading the newspaper or watching television: not at all 8. Moving or speaking so slowly that other people could have noticed. Or the opposite - being so fidgety or restless that you have been moving around a lot more than usual: not at all 9. Thoughts that you would be better off or of hurting yourself in some way: not at all Total score: 4 Depression Screening Interpretation: Negative Depression Screening Done: Yes 70042 - PHQ-9 Billing: Yes Source: Developed by Drs. Jesse Young, Irena Renteria, Carlton Hunter and colleagues, with an educational jerica from [employer]. Thrive Questionnaire Date Thrive assessed: 04/22/23 I am a: Patient What is your living situation today?: I have a steady place to live Within the past 12 months, did the food you bought not last and you didn't have the money to get more?: Never true Within the past 12 months, did you worry whether your food would run out before you got money to buy more?: Never true Do you have trouble paying for medicines?: No Do you have trouble getting transportation to medical appointments?: No Do you have trouble paying your heating and electricity bill?: No Do you have trouble taking care of your child, family member or friend?: No Do you have trouble with day-to-day activities such as bathing, preparing meals, shopping, managing finances, etc.?: No Are you currently unemployed and looking for a job?: No Are you interested in more education?: No Please select the resources that you would like help with: None Currently or been in a relationship where the following occur: no concerns reported AUDIT C Alcohol Use Questionnaire (AUDIT-C) 1. How often do you have a drink containing alcohol?: Monthly or less 2. How many drinks containing alcohol do you have on a typical day when you are drinking?: 1 or 2 3. How often do you have six or more drinks on one occasion?: Never Total Score: 1 NELI-7 AMB Questionnaire NELI-7 Date NELI - 7 assessed: 04/22/23 Feeling nervous, anxious, or on edge: 0 = Not at all Not being able to stop or control worryin = Not at all Worrying too much about different things: 0 = Not at all Trouble relaxin = Not at all Being so restless that it is hard to sit still: 0 = Not at all Becoming easily annoyed or irritable: 0 = Not at all Feeling afraid as if something awful might happen: 0 = Not at all Total NELI-7 score (0-4 normal; 5-9 mild; 10-14 moderate; 15-21 severe): 0 Source: Developed by Drs. Jesse Young, Irena Renteria, Carlton Hunter and colleagues, with an educational jerica from [employer]. NELI-7 Assessment Billing NELI-7 Assessment Tool: NELI-7 Assessment 80896 Review of Systems Const Denies headache(s) Eyes Denies loss of vision ENT Denies vertigo, Denies dizziness, Denies headache(s) and Denies sore throat Card Denies chest pain, Denies leg edema and Denies lightheadedness Resp Denies cough, Denies hemoptysis and Denies wheezing GI Denies abdominal pain, Denies melena, Denies constipation, Denies diarrhea and Denies vomiting Denies urinary frequency, Denies dysuria and Denies urinary urgency Musc Denies arthralgias, Denies joint swelling, Denies numbness and Denies tingling Neuro Denies Abnormal speech present, Denies behavioral changes, Denies vertigo, Denies dizziness, Denies headache(s), Denies loss of vision, Denies memory loss, Denies numbness and Denies tingling Psych Denies anxiety, Denies behavioral changes, Denies depression, Denies memory loss and Denies panic attacks Dima/Lymph Denies easy bleeding and Denies easy bruising Aller/Immun Denies wheezing Physical exam (Primary Care) Vital Signs: Last Vital Signs Pulse 72 04/22/23 08:12 BP 128/82 04/22/23 08:12 Pulse Ox 98 04/22/23 08:12 Oxygen Delivery Method Room Air 04/22/23 08:12 BMI result Body Mass Index 38.0 BMI Assessment/Plan discussion: High Tobacco/Smoking Status: Tobacco use Status Tobacco use date assessed 04/22/23 04/22/23 08:18 Patient Tobacco Use Status Former Tobacco user 04/22/23 08:18 Tobacco use type Cigarette 04/22/23 08:18 e-Cigarette/Vaping Use Never Used 04/22/23 08:18 PHQ-9: PHQ-9 Score PHQ-9: Total score 4 04/22/23 08:37 Depression Screening Interpretation: Negative Thrive Assessment: Date of Thrive Assessment Date Thrive assessed 04/22/23 04/22/23 08:18 Currently or been in a relationship where the following occur: no concerns reported Const Other: OBESE General: healthy appearing, no acute distress, alert and awake Nutritional Appearance: well nourished Orientation/consciousness: oriented to person, oriented to place and oriented to time HENMT Ears: TM's normal bilaterally General nose exam: Normal nasal mucous membranes and turbinates present Eyes Conjunctivae: conjunctivae normal Sclerae: sclerae normal Pupils: Equal, round and reactive pupils present Neck Neck: Yes no lymphadenopathy and Yes no JVD Thyroid: Thyroid normal Carotids: no bruits Resp Effort & Inspection: normal respiratory effort and not tachypneic Auscultation: no crackles, no rales, no rhonchi and no wheezes Cardio Rate: regular rate Rhythm: regular rhythm Heart sounds: no murmurs and normal S1 and S2 GI Palpation (GI): Soft to palpation, nontender, no hepatomegaly and no splenomegaly Auscultation: normal bowel sounds Skin General skin exam: no rashes or lesions noted and dry skin Neuro General: oriented to person, oriented to place and oriented to time Cranial nerves: Yes Equal, round and reactive pupils present Speech: No Abnormal speech present Gait exam (Neuro): Normal gait present Motor exam (neuro): no tremor noted Extrem Right upper extremity: full ROM Left upper extremity: full ROM Right lower extremity: full ROM; no edema Left lower extremity: full ROM; no edema Psych Mental Status: mental status grossly normal Speech and movement: Normal speech and movement present Affect: normal affect Attitude: cooperative Thought process: Normal thought process present Office Procedures Flu Questionnaire Does the patient have a severe egg allergy?: No Does the patient have severe life threatening allergies?: No Does the patient have a fever or illness today?: No Has the patient ever had Guillain-[place] Syndrome?: No Has the patient ever had any past reaction to a flu shot?: No Immunizations flu vacc [id number] 6mos up(PF) 60 mcg(15 mcgx4)/0.5 mL IM syringe Performing Provider: Rickey Sin PA-C [facility] Administered by: Arden Stanford on 04/22/23 08:37 Dose Route Admin Location Dispensed Lot Number Expiration Date NDC [employer]ibr[employer] 0.5 mL IM Left Deltoid 0.5 mL [id number] 10/18/23 [id number] [employer] VIS Given Date VIS Provided VIS Publication Date 04/22/23 Single Vaccine 20 Eligibility Eligibility Date Funding Source Not [facility] Eligible 04/22/23 Private Assessment and Plan Assessment & Plan (1) HTN (hypertension): Code(s): I10 - Essential (primary) hypertension Qualifiers: Hypertension type: primary hypertension Qualified Code(s): I10 - Essential (primary) hypertension Plan: Patient's blood pressure much improved with the addition of lisinopril 5 mg. Denies any side effect from medication. Advised to continue monitoring blood pressure at home with goal blood pressure remain below 140/90 (2) Borderline high cholesterol: Code(s): E78.9 - Disorder of lipoprotein metabolism, unspecified Plan: Patient does have history of borderline cholesterol. Continue to follow on annual basis. Goal LDL to remain below 160 (3) MDD (major depressive disorder), recurrent episode, moderate: Code(s): F33.1 - Major depressive disorder, recurrent, moderate Plan: Patient's PHQ-9 score positive for mild to moderate pressure which has been existing condition for her. She continues on SSRI therapy which has been effective for her. Otherwise denies any SI or HI (4) NELI (generalized anxiety disorder): Code(s): F41.1 - Generalized anxiety disorder Plan: Patient's NELI-7 score positive for mild anxiety which has been existing condition for her. She continues on SSRI therapy with good effect on anxiety and depression. (5) Synovial cyst of right wrist: Code(s): M71.331 - Other bursal cyst, right wrist Plan: Patient continues to have a right wrist synovial cyst that she reports his painful at times. She does do a lot of typing at her job. Advised on topical anti-inflammatory, rest and use of for split the night. She will consider occupational therapy if conservative treatment at home is not effective. (6) Obese: Code(s): E66.9 - Obesity, unspecified Qualifiers: Body mass index: BMI 38.0-38.9 Obesity classification: adult class 2 (BMI 35 - 39.9) Obesity type: due to excess calories Serious obesity comorbidity presence: without serious comorbidity Qualified Code(s): E66.09 - Other obesity due to excess calories; Z68.38 - Body mass index [BMI] 38.0-38.9, adult Plan: Patient does understand BMI is over 30 will work on being more physically active and adapting to better eating habits to reduce her weight. Orders: Orders Comprehensive [place]. Panel Fast Today I10 - Essential (primary) hypertension Complete Blood Count no Diff Today I10 - Essential (primary) hypertension Lipid Panel Today E78.9 - Disorder of lipoprotein metabolism, unspecified Microalbumin, Random (w Creat) Today I10 - Essential (primary) hypertension Influenza [id number] Immunization Today Z23 - Encounter for immunization Medications: Changed From lisinopril 5 mg PO DAILY 30 days 30 tabs 3RF I10 - Essential (primary) hypertension To lisinopril 5 mg PO DAILY 90 days 90 tabs 2RF I10 - Essential (primary) hypertension Coding Level of Care Code Est Pt Level 4 (83524) Diagnoses Primary hypertension I10 Hypertension type: primary hypertension Borderline high cholesterol E78.9 MDD (major depressive disorder), recurrent episode, moderate F33.1 NELI (generalized anxiety disorder) F41.1 Synovial cyst of right wrist M71.331 Class 2 obesity due to excess calories without serious comorbidity with body mass index (BMI) of 38.0 to 38.9 in adult E66.09; Z68.38 Body mass index: BMI 38.0-38.9 Obesity classification: adult class 2 (BMI 35 - 39.9) Obesity type: due to excess calories Serious obesity comorbidity presence: without serious comorbidity Additional Codes NELI-7 Assessment Billing - NELI-7 Assessment Tool: NELI-7 Assessment [id number] ([id number])
== END 2023-04-22 08:39 | disposition home or self-care (01) ==
PROVIDERS: PCP Physician Assistant; Visit Provider Physician Assistant
DX: I10 Essential (primary) hypertension (principal); F33.1 Major depressive disorder, recurrent, moderate; Z68.38 Body mass index [BMI] 38.0-38.9, adult; Z23 Encounter for immunization; E78.9 Disorder of lipoprotein metabolism, unspecified; E66.09 Other obesity due to excess calories; F41.1 Generalized anxiety disorder; M71.331 Other bursal cyst, right wrist
CPT/HCPCS: 90471; 90686; 99214

== ENCOUNTER 2023-08-11 07:37 | Outpatient (REF) | payer BC, SELFPAY ==
--- NOTE | ~2023-08-11 | MM_ITS ---
EXAMINATION: MM SCREENING DIGITAL BREAST TOMOSYNTHESIS, BILATERAL CLINICAL INFORMATION: Screening. Asymptomatic. COMPARISON: Mammography: 08/06/2022, 06/18/2020, 08/02/2018, 12/05/2016 TECHNIQUE: Digital breast tomosynthesis is performed in both the craniocaudal and mediolateral oblique views along with computer-aided detection (CAD). Synthesized 2D images are generated from the tomosynthesis. A second right full-field MLO view was obtained. FINDINGS: There are scattered areas of fibroglandular density (ACR BI-RADS breast composition Category b). There are no suspicious masses, suspicious grouped calcifications, or areas of architectural distortion in either breast. The parenchymal pattern is stable from prior exams. No skin or axillary abnormalities. MM/MM tomosynthesis screening BI IMPRESSION: No mammographic evidence of malignancy. ASSESSMENT: BI-RADS BI-RADS 1 - Negative RECOMMENDATION: Routine annual mammography screening. 1 year F/U This examination should not preclude the clinical evaluation of a suspicious palpable abnormality. This patient's information was entered into a reminder system with a target due date for their next mammogram.
== END 2023-08-11 07:38 | disposition home or self-care (01) ==
LOC: HO.MAMMO 07:37
PROVIDERS: PCP Internal Medicine; Visit Provider Internal Medicine
DX: Z12.31 Encounter for screening mammogram for malignant neoplasm of breast (principal)
CPT/HCPCS: 77063; 77067

== ENCOUNTER → 2023-08-11 07:45 | Outpatient (BNV) | payer BC, SELFPAY | PROVIDERS: PCP Internal Medicine; Visit Provider Radiology Diagnostic Radiology | DX: Z12.31 Encounter for screening mammogram for malignant neoplasm of breast (principal) | CPT/HCPCS: 77063; 77067 ==

== ENCOUNTER 2023-08-24 07:34 | Emergency (ER) | payer BC, SELFPAY ==
--- NOTE | 2023-08-24 | ECG_ITS ---
Test Reason : SYNCOPE Blood Pressure : / mmHG Vent. Rate : 070 BPM Atrial Rate : 070 BPM P-R Int : 132 ms QRS Dur : 092 ms QT Int : 400 ms P-R-T Axes : 044 006 034 degrees QTc Int : 432 ms Normal sinus rhythm Normal ECG No previous ECGs available Referred By: Generic ED Physician Electronically Signed By:Rafael Cintron
[2023-08-24 07:49] VITALS: BP 194/101; PULSE 80; RESP 18; TEMP 36.4; O2SAT 97; BMI 32.6
[2023-08-24 08:49] LABS: MANUAL DIFF FLAG NO
[2023-08-24 08:52] LABS: Basophils Absolute Auto 0.1 X10*3/uL (0.0-0.2); Basophils Percent Auto 0.7 % (0-2); Eosinophils Absolute Auto 0.3 X10*3/uL (0.0-0.4); Eosinophils Percent Auto 2.4 % (0-4); Hematocrit 43.8 % (37.0-47.0); Hemoglobin 14.3 g/dl (12.0-16.0); Imm Gran Abs Auto 0.05 X10*3/uL (0.00-0.03); Imm Gran Pct Auto 0.4 % (0.0-0.4); Lymphocytes Absolute Auto 1.8 X10*3/uL (1.2-4.9); Lymphocytes Percent Auto 14.4 % (20-40); Mean Corpuscular HGB Conc 32.6 g/dl (31.0-35.0); Mean Corpuscular Hemoglobin 30.2 pg (27.0-33.0); Mean Corpuscular Volume 92.4 fL (80.0-98.0); Mean Platelet Volume 10.7 fL (9.4-12.3); Monocytes Absolute Auto 0.6 X10*3/uL (0.1-1.2); Monocytes Percent Auto 5.2 % (2-11); Neutrophils Absolute Auto 9.4 x10*3/uL (2.0-8.3); Neutrophils Percent Auto 76.9 % (45-73); Platelet Count 332 X10*3/uL (160-400); Red Blood Count 4.74 X10*6/uL (4.20-5.50); Red Cell Distribution Width 12.3 % (11.0-16.0); White Blood Count 12.3 X10*3/uL (4.8-10.8)
[2023-08-24 08:55] LABS: Appearance Urine Clear; Color Urine Straw; Glucose Urine UA Negative (Negative); Leukocyte Esterase Urine Negative (Negative); Nitrite Urine Negative (Negative); Specific Gravity - Urine <= 1.005 (1.005-1.025); UMIC TRIGGER UACC YES; Urine Blood Moderate (2+) (Negative); Urine Ketones Negative (Negative); Urine Protein Negative (Neg-Trace)
[2023-08-24 08:58] LABS: Bacteria Urine None Seen (None Seen); Hyaline Casts Urine 0-2 /LPF (0-2); Squamous Epithelial Cell Urine 0-2 /HPF (0-2); WBC Urine 0-5 /HPF (0-5)
[2023-08-24 09:07] LABS: Alanine Aminotransferase 13 U/L (0-31); Albumin Level 4.2 g/dL (3.5-5.0); Alkaline Phosphatase 65 U/L (39-117); Anion Gap 14 (12-20); Aspartate Amino Transferase 15 U/L (5-31); Bilirubin Total 0.3 mg/dL (0.0-1.0); Blood Urea Nitrogen 11 mg/dL (9-16); Calcium 10.2 mg/dL (8.4-10.2); Carbon Dioxide 23 mmol/L (22-29); Chloride 110 mmol/L (96-108); Creatinine Clr Calc Pharmacy 72.1; Estimated Glomerular Filt Rate 60; Glucose Random 103 mg/dL (60-115); Potassium 4.5 mmol/L (3.3-5.1); Sodium 142 mmol/L (135-145); Total Protein 7.7 g/dL (6.5-8.0)
--- NOTE | 2023-08-24 16:11 | ED_ITS ---
HPI - General Adult General Chief complaint: General Medical Stated complaint: not feeling well fainted Thursday High BP Time Seen by Provider: 08/24/23 18:07 Source: patient Mode of arrival: ambulatory Limitations: no limitations History of Present Illness HPI narrative: Patient is a 52 year old assigned female at with a history of HTN on Lisinopril presenting to the emergency department today with feeling generally unwell. Patient states that 3 days ago she had a very brief syncopal episode (<5 seconds) when getting up to go to the restroom and was incontinent of stool. Patient states that she did not hit her head or have any loss of consciousness. Patient states that she did not take her HTN medication today. Patient states that she continues to feel somewhat weak and nauseous. Patient denies any dizziness, lightheadedness, abdominal pain, vomiting, fever, chills, blurry vision, double vision, loss of vision, chest pain, difficulty breathing, shortness of breath, back pain, night sweats, pain with urination, increased urinary frequency, increased urinary urgency, blood in his urine or stool, syncope or a near syncopal episode, recent trauma or falls, bladder incontinence, bowel retention, bladder retention, or any other complaints at this time. Onset (ago): day(s) (3) Severity: mild Relieving factors: none Exacerbating factors: none Associated symptoms: nausea/vomiting and syncope (3 days ago, <3 seconds) Treatments prior to arrival: none Related Data Home Medications ?Medication ?Instructions ?Recorded ?Confirmed loratadine 10 mg tablet (Allergy 10 mg PO DAILY 01/30/20 04/22/23 Relief (loratadine)) calcium carbonate (Calcium 500) 500 mg PO DAILY 02/26/23 04/22/23 Previous Rx's ?Medication ?Instructions ?Recorded escitalopram oxalate 10 mg tablet 10 mg PO DAILY 90 days #90 caps 03/17/23 escitalopram oxalate 20 mg tablet 20 mg PO DAILY 90 days #90 caps 03/17/23 lisinopril 5 mg tablet 5 mg PO DAILY 90 days #90 tabs 04/22/23 ondansetron 4 mg disintegrating 4 mg PO Q8H 3 days #9 tabs 08/24/23 tablet Allergies Allergy/AdvReac Type Severity Reaction Status Date / Time bupropion [From WELLBUTRIN] Allergy Severe HIVES Verified 08/24/23 07:53 Review of Systems 2 Constitutional: Constitutional: Reports no additional constitutional complaints, Denies chills, Denies fever(s) and Denies night sweats Eyes: Eyes: Reports no additional eye complaints, Denies blurry vision, Denies change in vision, Denies diplopia, Denies eye discharge, Denies loss of vision and Denies eye pain ENT: Reports dizziness Cardiovascular: Cardiovascular: Reports no additional cardiovascular complaints, Denies chest pain, Reports syncope (3 days ago, <3 seconds), Denies lightheadedness, Denies Loss of Consciousness and Denies dyspnea Respiratory: Respiratory: Reports no additional respiratory complaints and Denies dyspnea Gastrointestinal: Gastrointestinal: Reports no additional gastrointestinal complaints, Denies abdominal pain, Denies melena, Denies hematochezia, Denies change in bowel habits, Denies change in stool character and Reports nausea Genitourinary: Genitourinary: Denies hematuria, Denies urinary frequency, Denies dysuria, Denies urinary incontinence, Denies urinary hesitancy and Denies urinary urgency Musculoskeletal: Musculoskeletal: Reports no additional musculoskeletal complaints, Denies numbness and Denies tingling Neurologic: Reports dizziness, Reports syncope (3 days ago, <3 seconds), Denies loss of vision, Denies numbness and Denies tingling Psychiatric: Psychiatric: Reports no additional psychiatric complaints Endocrine: Endocrine: Reports no additional endocrine complaints Hematologic/Lymphatic: Hematologic/Lymphatic: Reports no additional hematologic/lymphatic complaints Allergic/Immunologic: Allergic/Immunologic: Reports no additional allergic/immunologic complaints PMF Past Medical History Attestation statement: The following information was validated with the patient. Source: old records reviewed and nursing notes reviewed Medical History Enlarged uterus Dyslipidemia Polyarthralgia Right hip pain Right knee pain Upper back pain Right shoulder pain Neck pain Impaired glucose tolerance Anxiety Seasonal allergies Depression Surgical History History of section History of appendectomy Family History Family History Father Pulmonary fibrosis determined by high resolution computed tomography Mother No problems noted. Paternal Grandmother Stroke Maternal Grandmother Lung cancer Maternal Aunt Lung cancer Maternal Uncle Bladder cancer Family/Other FH: mental illness Social History Social History Housing: House Alcohol intake: current Alcohol intake frequency: holidays/special occasions only Alcohol type: wine Patient Tobacco Use Status: Former Tobacco user Quit Date: 2018 Tobacco use type: Cigarette Years Smoked: 23 e-Cigarette/Vaping Use: Never Used Advance Directives: No Advance Directives Information Provided: No Do you have a plan to hurt others: No Plan service: No Current occupational status: employed Current occupation: [employer] Cognitive needs: No Hearing needs: No Vision needs: Yes Physical Exam ED Vital Signs: Vital Signs - 24 hr 08/24/23 07:49 Temperature 97.6 F Pulse Rate 80 Respiratory Rate 18 Blood Pressure 194/101 H Pulse Oximetry 97 Oxygen Delivery Method Room Air BMI result Body Mass Index 32.6 Const General: cooperative, no acute distress, alert and awake Nutritional Appearance: well nourished Orientation/consciousness: patient oriented x3 Limitations: no limitations HENMT Head: Yes normal to inspection and Yes atraumatic Ears: hearing grossly normal bilaterally and external ears normal General nose exam: Normal external nose present, no nasal discharge noted and no epistaxis Face and sinus: Yes normal facial exam, No abrasion and No laceration Mouth: Normal oral and palatal mucosa present, no drooling and no muffled voice Eyes General: appearance normal, both eyes and all related structures Periorbital: periorbital findings normal Eyelids: Yes eyelids normal Conjunctivae: conjunctivae normal Pupils: Equal, round and reactive pupils present EOM: EOMs intact bilaterally Neck Neck: Yes normal visual inspection, Yes full ROM and Yes no lymphadenopathy Chest Chest palpation & inspection: normal inspection of the chest Resp Effort & Inspection: normal respiratory effort and able to speak in complete sentences GI Inspection: Yes normal to inspection Neuro General: patient oriented x3 and moves all extremities Cranial nerves: Yes Equal, round and reactive pupils present Cognition (Neuro): normal cognition Motor exam (neuro): 5/5 motor strength present throughout Sensory Exam: Normal double simultaneous stimulation for sensation Coordination: pecfcg-ty-staf test normal Extrem General: Yes normal to inspection, Yes full ROM and Yes capillary refill normal Psych Appearance: grossly normal Mental Status: mental status grossly normal Affect: normal affect Attitude: cooperative Thought process: Normal thought process present Thought content: Normal thought content present Insight: Good insight present (Psych) Course Course Course Narrative: RME performed by Lor Carroll PA-C. Patient is a 52 year old assigned female at presenting to the emergency department feeling generally unwell. Patient had a syncopal episode after watching a medical show 3 days ago. Patient states that she is new to Lisinopril and did not take it this morning. Detailed physical exam and review of systems are deferred to the management information systems director. Labs and swabs ordered. Patient placed back in the waiting room pending room availability and results. Medical Decision Making Medical Decision Making [facility] Narrative: Patient is a 52 year old assigned female at with a history of HTN on Lisinopril presenting to the emergency department today with dizziness, weakness, and nausea after a brief syncopal episode 3 days earlier. Patient's physical exam was unremarkable. Patient was non-toxic appearing. Patient's blood work was unremarkable. Patient's urine showed no acute process. Patient's EKG was unremarkable. I explained my physical exam findings as well as all test results to the patient. I answered all questions asked by the patient. I explained to the patient that I recommend she get a head CT and a COVID- 19/Influenza/RSV swab. Patient declined this testing stating that she wanted to be discharged [facility]. I explained the risks of refusing these testing modalities including , disability, and decreased quality of life. Patient verbalized understanding and requested to be discharged. I stressed the importance of the patient taking her medication as prescribed. I stressed the importance of the patient following up with her primary care provider. I stressed the importance of the patient returning to the emergency department immediately if her symptoms were to worsen or if she were to develop any dizziness, shortness of breath, difficulty breathing, chest pain, blurry vision, loss of vision, nausea, vomiting, abdominal pain, fever, chills, back pain, or any other complaints. Patient verbalized agreement and understanding with this treatment plan and discharge. Differential Diagnosis Differential Diagnoses: The differential diagnosis associated with the presentation includes Syncope Nausea HTN urgency HTN emergency Admission/Observation Consideration of admission/observation: Escalation of care including admission/observation considered Patient would have been admitted to the hospital had she completed her work up and it had any findings where hospital admission was appropriate, her clinical presentation warranted hospital admission, and she hadn't requested immediate discharge. Lab Data [facility] Lab Attestation statement: I reviewed the patient's lab results. My interpretation of these results are in the MDM Rationale portion of this note. 08/24/23 08:28 08/24/23 08:28 Labs: Lab Results 08/24/23 08/24/23 Range/Units 08:28 08:32 WBC 12.3 H (4.8-10.8) X10*3/uL RBC 4.74 (4.20-5.50) X10*6/uL Hgb 14.3 (12.0-16.0) g/dl Hct 43.8 (37.0-47.0) % MCV 92.4 (80.0-98.0) fL MCH 30.2 (27.0-33.0) pg MCHC 32.6 (31.0-35.0) g/dl RDW 12.3 (11.0-16.0) % Plt Count 332 (160-400) X10*3/uL MPV 10.7 (9.4-12.3) fL Immature Gran % (Auto) 0.4 (0.0-0.4) % Neut % (Auto) 76.9 H (45-73) % Lymph % (Auto) 14.4 L (20-40) % [place] % (Auto) 5.2 (2-11) % Eos % (Auto) 2.4 (0-4) % Baso % (Auto) 0.7 (0-2) % Lymph # (Auto) 1.8 (1.2-4.9) X10*3/uL [place] # (Auto) 0.6 (0.1-1.2) X10*3/uL Eos # (Auto) 0.3 (0.0-0.4) X10*3/uL Baso # (Auto) 0.1 (0.0-0.2) X10*3/uL Abs Immat Gran (auto) 0.05 H (0.00-0.03) X10*3/uL Absolute Neuts (auto) 9.4 H (2.0-8.3) x10*3/uL Absolute Nucleated RBC 0.000 (0.0-0.012) X10*3/uL Nucleated RBC % (auto) 0.0 (0.0-0.2) /100WBC Sodium 142 (135-145) mmol/L Potassium 4.5 (3.3-5.1) mmol/L Chloride 110 H (96-108) mmol/L Carbon Dioxide 23 (22-29) mmol/L Anion Gap 14 (12-20) BUN 11 (9-16) mg/dL Creatinine 0.98 (0.5-1.4) mg/dL Estim Creat Clear Calc 72.1 Estimated GFR 60 Random Glucose 103 (60-115) mg/dL Calcium 10.2 D (8.4-10.2) mg/dL Total Bilirubin 0.3 (0.0-1.0) mg/dL AST 15 (5-31) U/L ALT 13 (0-31) U/L Alkaline Phosphatase 65 (39-117) U/L Total Protein 7.7 (6.5-8.0) g/dL Albumin 4.2 (3.5-5.0) g/dL Urine Color Straw Urine Appearance Clear Urine pH 6.0 (5.0-9.0) Ur Specific [place] <= 1.005 (1.005-1.025) Urine Protein Negative (Neg-Trace) mg/dL Urine Glucose (UA) Negative (Negative) mg/dL Urine Ketones Negative (Negative) mg/dL Urine Blood Moderate (2+) H (Negative) Urine Nitrite Negative (Negative) Ur Leukocyte Esterase Negative (Negative) Urine RBC 3-5 H (0-2) /HPF Urine WBC 0-5 (0-5) /HPF Ur Squamous Epith Cells 0-2 (0-2) /HPF Urine Bacteria None Seen (None Seen) Hyaline Casts 0-2 (0-2) /LPF Independent Interpretation I performed an independent interpretation of an: EKG Interpretation: Vent. Rate: 070 BPM Atrial Rate: 070 BPM P-R Int: 132 ms QRS Dur: 092 ms QT Int: 400 ms P-R-T Axes: 044 006 034 degrees QTc Int: 432 ms Normal sinus rhythm Normal ECG No previous ECGs available Electronically Signed By:Rafael Cintron Dictated By: Rafael Cintron MD Signed By: Electronically signed by Rafael Cintron MD 08/24/23 1147 Tests considered The following testing was considered but not selected: I considered and wanted to obtain a CT scan of the head and a COVID-19, influenza, and RSV test however, the patient declined both of these testing modalities citing she would like to be discharged immediately. Chronic Conditions Patient?s care impacted by: Hypertension Discharge Plan Discharge Clinical Impression: Weakness Hypertension Qualifiers: Hypertension type: primary hypertension Qualified Code(s): I10 - Essential (primary) hypertension Patient Disposition: Home, Self-Care Instructions: Weakness (ED), Hypertension (ED) Additional Instructions: Follow up with your primary care provider. Return to the emergency department immediately if your symptoms worsen or if you develop any dizziness, shortness of breath, difficulty breathing, chest pain, blurry vision, loss of vision, nausea, vomiting, abdominal pain, fever, chills, back pain, or any other complaints. Prescriptions: New ondansetron 4 mg tablet,disintegrating 4 mg PO Q8H 3 Days Qty: 9 0RF No Action escitalopram oxalate 20 mg tablet 20 mg PO DAILY 90 Days Qty: 90 3RF escitalopram oxalate 10 mg tablet 10 mg PO DAILY 90 Days Qty: 90 3RF loratadine [Allergy Relief (loratadine)] 10 mg tablet 10 mg PO DAILY lisinopril 5 mg tablet 5 mg PO DAILY 90 Days Qty: 90 2RF calcium carbonate [Calcium 500] 500 mg calcium (1,250 mg) tablet,chewable 500 mg PO DAILY Referrals: Carmina Denton MD [Primary Care Provider] - Stand Alone Forms: Work/School Release Interventions: ED Discharge Assessment Last Done: 08/24/23 18:12 Discharge Date/Time: 08/24/23 18:13 Print Language: Nigerien
[2023-08-24 16:13] VITALS: BP 189/104; PULSE 74; RESP 16; TEMP 36.6; O2SAT 99
[2023-08-24 18:12] VITALS: BP 189/104; PULSE 74; RESP 16; TEMP 36.6; O2SAT 99
== END 2023-08-24 18:13 | disposition home or self-care (01) ==
PROVIDERS: Emergency Provider Student in an Organized Health Care Education/Training Program; PCP Internal Medicine
DX: R55 Syncope and collapse (principal); I10 Essential (primary) hypertension; R53.1 Weakness; R42 Dizziness and giddiness; R11.0 Nausea; Z79.899 Other long term (current) drug therapy
CPT/HCPCS: 36415; 80053; 81001; 85025; 93005; 99283

== ENCOUNTER → 2023-08-24 08:17 | Outpatient (BNV) | payer BC, SELFPAY | PROVIDERS: PCP Internal Medicine; Visit Provider Internal Medicine Cardiovascular Disease | DX: R55 Syncope and collapse (principal) | CPT/HCPCS: 93010 ==

== ENCOUNTER 2023-10-21 07:54 | Outpatient (AMB) | payer BC, SELFPAY ==
[2023-10-21 07:56] VITALS: BP 152/92; PULSE 78; O2SAT 98; BMI 35.4
--- NOTE | 2023-10-21 07:56 | A.OFFPC_ITS ---
Vital Signs 3 10/21/23 07:56 Height 5 ft 4 in Weight 206 lb BMI 35.4 BP 152/92 H Blood Pressure Location Lt brachial Position Sitting Pulse 78 Pulse Source Pulse Oximeter Pulse Oximetry (%) 98 Oxygen Delivery Method Room Air Intake Visit Reasons: f/u HTN Allergies bupropion [From WELLBUTRIN] Allergy (Severe, Verified 10/21/23 08:10) HIVES Medication List - Last Reconciled 10/21/23 by Rickey Sin PA-C calcium carbonate (Calcium 500) 500 mg PO DAILY escitalopram oxalate 20 mg PO DAILY 90 days escitalopram oxalate 10 mg PO DAILY 90 days lisinopril 5 mg PO DAILY 90 days loratadine (Allergy Relief (loratadine)) 10 mg PO DAILY magnesium gluconate 500 mg PO BEDTIME multivitamin 1 tab PO DAILY Tobacco use date assessed: 04/22/23 Dental Screening Dental Screen Date: 04/22/23 HPI f/u HTN 2 HPI0 Details Patient is a 53-year-old female here today for a follow-up visit. Patient's past medical history significant for obesity, hypertension, borderline high cholesterol, generalized anxiety disorder and depression.. Concern--< noted right clavicular bone lump on physical exam today. Will send for x-ray to evaluate. She does report a distant history of cervical and upper back injury which may be the cause of this malformation . Hypertension: Patient's blood pressu re continues to be elevated. Continues on lisinopril 5 mg daily. Of note did have an episode syncope resulting in ER evaluation. Workup including EKG and labs was essentially normal. Of note did have slight leukocytosis. She does not report a lot of work-related stress and personal issues at home which may be driving her blood pressure up as well. She does report blood pressures at home have been stable 120s to 130s systolic. .. Depression/ anxiety: Has been fairly stable with current dose of SSRI therapy. She does report having supportive family and friends. Not interested in formal cognitive behavioral therapy at this time. [facility] Medical History Enlarged uterus Dyslipidemia Polyarthralgia Right hip pain Right knee pain Upper back pain Right shoulder pain Neck pain Impaired glucose tolerance Anxiety Seasonal allergies Depression Surgical History History of section History of appendectomy Family History Father Pulmonary fibrosis determined by high resolution computed tomography Mother No problems noted. Paternal Grandmother Stroke Maternal Grandmother Lung cancer Maternal Aunt Lung cancer Maternal Uncle Bladder cancer Family/Other FH: mental illness Social History Housing: House Alcohol intake: current Alcohol intake frequency: holidays/special occasions only Alcohol type: wine Patient Tobacco Use Status: Former Tobacco user Tobacco use type: Cigarette Years Smoked: 23 e-Cigarette/Vaping Use: Never Used service: No Current occupational status: employed Current occupation: [employer] Cognitive needs: No Hearing needs: No Vision needs: Yes Questionnaire PHQ-9 Over the last 2 weeks, how often have you been bothered by any of the following problems? 1. Little interest or pleasure in doing things: more than half the days 2. Feeling down, depressed, or hopeless: more than half the days 3. Trouble falling or staying asleep, or sleeping too much: not at all 4. Feeling tired or having little energy: not at all 5. Poor appetite or overeating: not at all 6. Feeling bad about yourself - or that you are a failure or have let yourself or your family down: not at all 7. Trouble concentrating on things, such as reading the newspaper or watching television: not at all 8. Moving or speaking so slowly that other people could have noticed. Or the opposite - being so fidgety or restless that you have been moving around a lot more than usual: not at all 9. Thoughts that you would be better off or of hurting yourself in some way: not at all Total score: 4 Depression Screening Interpretation: Negative Depression Screening Done: Yes 66300 - PHQ-9 Billing: Yes Source: Developed by Drs. Jesse Young, Irena Renteria, Carlton Hunter and colleagues, with an educational jerica from [employer]. Thrive Questionnaire Date Thrive assessed: 04/22/23 I am a: Patient What is your living situation today?: I have a steady place to live Within the past 12 months, did the food you bought not last and you didn't have the money to get more?: Never true Within the past 12 months, did you worry whether your food would run out before you got money to buy more?: Never true Do you have trouble paying for medicines?: No Do you have trouble getting transportation to medical appointments?: No Do you have trouble paying your heating and electricity bill?: No Do you have trouble taking care of your child, family member or friend?: No Do you have trouble with day-to-day activities such as bathing, preparing meals, shopping, managing finances, etc.?: No Are you currently unemployed and looking for a job?: No Are you interested in more education?: No Currently or been in a relationship where the following occur: No concerns reported THRIVE Score: 0 AUDIT C Alcohol Use Questionnaire (AUDIT-C) 1. How often do you have a drink containing alcohol?: Monthly or less 2. How many drinks containing alcohol do you have on a typical day when you are drinking?: 1 or 2 3. How often do you have six or more drinks on one occasion?: Never Total Score: 1 NELI-7 AMB Questionnaire NELI-7 Date NELI - 7 assessed: 04/22/23 Source: Developed by Drs. Jesse Young, Irena Renteria, Carlton Hunter and colleagues, with an educational jerica from [employer]. Review of Systems Const Denies headache(s) Eyes Denies loss of vision ENT Denies vertigo, Denies dizziness, Denies headache(s) and Denies sore throat Card Denies chest pain, Denies leg edema and Denies lightheadedness Resp Denies cough, Denies hemoptysis and Denies wheezing GI Denies abdominal pain, Denies melena, Denies constipation, Denies diarrhea and Denies vomiting Denies urinary frequency, Denies dysuria and Denies urinary urgency Musc Denies arthralgias, Denies joint swelling, Denies numbness and Denies tingling Neuro Denies Abnormal speech present, Denies behavioral changes, Denies vertigo, Denies dizziness, Denies headache(s), Denies loss of vision, Denies memory loss, Denies numbness and Denies tingling Psych Denies anxiety, Denies behavioral changes, Denies depression, Denies memory loss and Denies panic attacks Dima/Lymph Denies easy bleeding and Denies easy bruising Aller/Immun Denies wheezing Physical exam (Primary Care) Vital Signs: Last Vital Signs Pulse 78 10/21/23 07:56 BP 152/92 H 10/21/23 07:56 Pulse Ox 98 10/21/23 07:56 Oxygen Delivery Method Room Air 10/21/23 07:56 BMI result Body Mass Index 35.4 Tobacco/Smoking Status: Tobacco use Status Tobacco use date assessed 04/22/23 10/21/23 08:04 Patient Tobacco Use Status Former Tobacco user 10/21/23 08:04 Tobacco use type Cigarette 10/21/23 08:04 e-Cigarette/Vaping Use Never Used 10/21/23 08:04 PHQ-9: PHQ-9 Score PHQ-9: Total score 4 10/21/23 08:11 Depression Screening Interpretation: Negative Thrive Assessment: Date of Thrive Assessment Date Thrive assessed 04/22/23 10/21/23 08:04 Currently or been in a relationship where the following occur: No concerns reported Const General: healthy appearing, no acute distress, alert and awake Nutritional Appearance: well nourished Orientation/consciousness: oriented to person, oriented to place and oriented to time HENMT Ears: TM's normal bilaterally General nose exam: Normal nasal mucous membranes and turbinates present Eyes Conjunctivae: conjunctivae normal Sclerae: sclerae normal Pupils: Equal, round and reactive pupils present Neck Neck: Yes no lymphadenopathy and Yes no JVD Thyroid: Thyroid normal Carotids: no bruits Neck images: 2 1. LARGE BONY LUMP OVER THE RIGHT CLAVICULAR STERNAL REGION Resp Effort & Inspection: normal respiratory effort and not tachypneic Auscultation: no crackles, no rales, no rhonchi and no wheezes Cardio Rate: regular rate Rhythm: regular rhythm Heart sounds: no murmurs and normal S1 and S2 GI Palpation (GI): Soft to palpation, nontender, no hepatomegaly and no splenomegaly Auscultation: normal bowel sounds Skin General skin exam: no rashes or lesions noted and dry skin Neuro General: oriented to person, oriented to place and oriented to time Cranial nerves: Yes Equal, round and reactive pupils present Speech: No Abnormal speech present Gait exam (Neuro): Normal gait present Motor exam (neuro): no tremor noted Extrem Right upper extremity: full ROM Left upper extremity: full ROM Right lower extremity: full ROM; no edema Left lower extremity: full ROM; no edema Psych Mental Status: mental status grossly normal Speech and movement: Normal speech and movement present Affect: normal affect Attitude: cooperative Thought process: Normal thought process present Assessment and Plan Assessment & Plan (1) HTN (hypertension): Code(s): I10 - Essential (primary) hypertension Qualifiers: Hypertension type: primary hypertension Qualified Code(s): I10 - Essential (primary) hypertension Plan: Patient's blood pressure much improved with the addition of lisinopril 5 mg. Today's blood pressure slightly elevated. She reports that blood pressures have been pretty stable. Will continue current dose of lisinopril for now and continue working on lifestyle and dietary modifications. Denies any side effect from medication. Goal blood pressure to be below 140/90 (2) Cyst of right clavicle: Code(s): M85.611 - Other cyst of bone, right shoulder Plan: As per physical exam section. Will get x-ray of right clavicle to evaluate. (3) Dyslipidemia: Code(s): E78.5 - Hyperlipidemia, unspecified Plan: Patient does have history of elevated total cholesterol. Has been making lifestyle and dietary modifications in his able to drastically reduce her cholesterol with the last use ears. Will continue to follow fasting lipid panel with goal total cholesterol to be below 200 Orders: Orders 2 [facility] [place]. Panel Fast Today R73.02 - Impaired glucose tolerance (oral) Lipid Panel Today E78.9 - Disorder of lipoprotein metabolism, unspecified Microalbumin, Random (w Creat) Today I10 - Essential (primary) hypertension Complete Blood Count no Diff Today I10 - Essential (primary) hypertension XR clavicle RT Today M85.611 - Other cyst of bone, right shoulder Patient Instructions: Goal: Blood pressure to remain below 140/90, total cholesterol remain below 200 Barriers: Adherence to physical activity and healthy eating habits Coding Level of Care Code Est Pt Level 4 (87724) Diagnoses Primary hypertension I10 Hypertension type: primary hypertension Cyst of right clavicle M85.611 Dyslipidemia E78.5
== END 2023-10-21 08:31 | disposition home or self-care (01) ==
PROVIDERS: PCP Internal Medicine; Visit Provider Physician Assistant
DX: I10 Essential (primary) hypertension (principal); M85.611 Other cyst of bone, right shoulder; E78.5 Hyperlipidemia, unspecified
CPT/HCPCS: 99214

== ENCOUNTER 2024-01-23 09:41 | Outpatient (REF) | payer BC, SELFPAY ==
[2024-01-23 10:50] LABS: Hematocrit 42.8 % (37.0-47.0); Hemoglobin 13.5 g/dl (12.0-16.0); Mean Corpuscular HGB Conc 31.5 g/dl (31.0-35.0); Mean Corpuscular Hemoglobin 29.5 pg (27.0-33.0); Mean Corpuscular Volume 93.4 fL (80.0-98.0); Mean Platelet Volume 10.7 fL (9.4-12.3); Platelet Count 322 X10*3/uL (160-400); Red Blood Count 4.58 X10*6/uL (4.20-5.50); Red Cell Distribution Width 12.3 % (11.0-16.0); White Blood Count 8.4 X10*3/uL (4.8-10.8)
[2024-01-23 11:39] LABS: Creatinine Urine 114.07 mg/dL; Microalbum/Creatinine Ratio Ur 4.3 ug/mg cr (<30)
[2024-01-23 12:15] LABS: Alanine Aminotransferase 13 U/L (0-31); Albumin Level 3.9 g/dL (3.5-5.0); Alkaline Phosphatase 63 U/L (39-117); Anion Gap 10 (12-20); Aspartate Amino Transferase 15 U/L (5-31); Bilirubin Total 0.4 mg/dL (0.0-1.0); Blood Urea Nitrogen 14 mg/dL (9-16); Calcium 9.4 mg/dL (8.4-10.2); Carbon Dioxide 25 mmol/L (22-29); Chloride 110 mmol/L (96-108); Cholesterol 208 mg/dL (<200); Estimated Glomerular Filt Rate > 60; Glucose Fasting 85 mg/dL (60-99); HDL Cholesterol 44 mg/dL (>40); LDL Cholesterol Calculated 142 mg/dL (<100); Sodium 141 mmol/L (135-145); Triglycerides 111 mg/dL (<150)
== END 2024-01-23 09:42 | disposition home or self-care (01) ==
LOC: HO.LAB 09:41
PROVIDERS: PCP Physician Assistant; Visit Provider Physician Assistant
DX: R73.02 Impaired glucose tolerance (oral) (principal); E78.9 Disorder of lipoprotein metabolism, unspecified; I10 Essential (primary) hypertension
CPT/HCPCS: 36415; 80053; 80061; 82043; 82570; 85027

== ENCOUNTER 2024-01-26 08:43 | Outpatient (AMB) | payer BC, SELFPAY ==
[2024-01-26 08:52] VITALS: BP 166/88; PULSE 72; O2SAT 91; BMI 35.7
--- NOTE | 2024-01-26 08:52 | MHC.PC.OV ---
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 Accompanied by: Self / Same As Patient Allergies bupropion [From WELLBUTRIN] Allergy (Severe, Verified 01/26/24 09:07) HIVES Medication List - Last Reconciled 01/26/24 by Rickey Sin PA-C calcium carbonate (Calcium 500) 500 mg PO DAILY escitalopram oxalate 20 mg PO DAILY 90 days escitalopram oxalate 10 mg PO DAILY 90 days lisinopril 5 mg PO DAILY 90 days loratadine (Allergy Relief (loratadine)) 10 mg PO DAILY magnesium gluconate 500 mg PO BEDTIME multivitamin 1 tab PO DAILY Tobacco use date assessed: 04/22/23 Dental Screening Dental Screen Date: 04/22/23 HPI f/u HTN / HLD HPI Details Patient is a 53-year-old female here today for a follow-up visit. Patient's past medical history significant for obesity, hypertension, borderline high cholesterol, generalized anxiety disorder and depression.. . Hypertension: Patient's blood pressure continues to be elevated, reports she had a frustrating morning and her stresses pretty elevated. She has been monitoring her blood pressure at home and notes 110s to 120 systolic. Continues on lisinopril 5 mg daily which he reports works well for her.. .. Borderline high cholesterol: Most recent fasting lipid panel showing borderline high cholesterol. She does admit to some dietary indiscretion as she does have GI problems which causes her to modify her diet and certain ways. .. Depression/ anxiety: Has been fairly stable with current dose of SSRI therapy. She does report having supportive family and friends. Not interested in formal cognitive behavioral therapy at this time. [facility] Medical History Enlarged uterus Dyslipidemia Polyarthralgia Right hip pain Right knee pain Upper back pain Right shoulder pain Neck pain Impaired glucose tolerance Anxiety Seasonal allergies Depression Surgical History History of section History of appendectomy Family History Father Pulmonary fibrosis determined by high resolution computed tomography Mother No problems noted. Paternal Grandmother Stroke Maternal Grandmother Lung cancer Maternal Aunt Lung cancer Maternal Uncle Bladder cancer Family/Other FH: mental illness Social History Housing: House Alcohol intake: current Alcohol intake frequency: holidays/special occasions only Alcohol type: wine Patient Tobacco Use Status: Former Tobacco user Tobacco use type: Cigarette Years Smoked: 23 e-Cigarette/Vaping Use: Never Used service: No Current occupational status: employed Current occupation: [employer] Cognitive needs: No Hearing needs: No Vision needs: Yes Questionnaire PHQ-9 Over the last 2 weeks, how often have you been bothered by any of the following problems? 1. Little interest or pleasure in doing things: more than half the days 2. Feeling down, depressed, or hopeless: more than half the days 3. Trouble falling or staying asleep, or sleeping too much: not at all 4. Feeling tired or having little energy: not at all 5. Poor appetite or overeating: not at all 6. Feeling bad about yourself - or that you are a failure or have let yourself or your family down: not at all 7. Trouble concentrating on things, such as reading the newspaper or watching television: not at all 8. Moving or speaking so slowly that other people could have noticed. Or the opposite - being so fidgety or restless that you have been moving around a lot more than usual: not at all 9. Thoughts that you would be better off or of hurting yourself in some way: not at all Total score: 4 Depression Screening Interpretation: Positive Depression Screening Follow-up: Existing condition Depression Screening Done: Yes 34268 - PHQ-9 Billing: Yes Source: Developed by Drs. Jesse Young, Irena Renteria, Carlton Hunter and colleagues, with an educational jerica from [employer] Thrive Questionnaire Date Thrive assessed: 04/22/23 Are you currently unemployed and looking for a job?: No AUDIT C Alcohol Use Questionnaire (AUDIT-C) 2. How many drinks containing alcohol do you have on a typical day when you are drinking?: 1 or 2 3. How often do you have six or more drinks on one occasion?: Never Total Score: 0 NELI-7 AMB Questionnaire NELI-7 Date NELI - 7 assessed: 04/22/23 Source: Developed by Drs. Jesse Young, Irena Renteria, Carlton Hunter and colleagues, with an educational jerica from [employer] Review of Systems Const Denies headache(s) Eyes Denies loss of vision ENT Denies vertigo, Denies dizziness, Denies headache(s) and Denies sore throat Card Denies chest pain, Denies leg edema and Denies lightheadedness Resp Denies cough, Denies hemoptysis and Denies wheezing GI Denies abdominal pain, Denies melena, Denies constipation, Denies diarrhea and Denies vomiting Denies urinary frequency, Denies dysuria and Denies urinary urgency Musc Denies arthralgias, Denies joint swelling, Denies numbness and Denies tingling Neuro Denies Abnormal speech present, Denies behavioral changes, Denies vertigo, Denies dizziness, Denies headache(s), Denies loss of vision, Denies memory loss, Denies numbness and Denies tingling Psych Denies anxiety, Denies behavioral changes, Denies depression, Denies memory loss and Denies panic attacks Dima/Lymph Denies easy bleeding and Denies easy bruising Aller/Immun Denies wheezing Physical exam (Primary Care) Vital Signs: Last Vital Signs Pulse 72 01/26/24 08:52 BP 166/88 H 01/26/24 08:52 Pulse Ox 91 L 01/26/24 08:52 Oxygen Delivery Method Room Air 01/26/24 08:52 BMI result Body Mass Index 35.7 Tobacco/Smoking Status: Tobacco use Status Tobacco use date assessed 04/22/23 01/26/24 08:53 Patient Tobacco Use Status Former Tobacco user 01/26/24 08:53 Tobacco use type Cigarette 01/26/24 08:53 e-Cigarette/Vaping Use Never Used 01/26/24 08:53 PHQ-9: PHQ-9 Score PHQ-9: Total score 4 01/26/24 09:08 Depression Screening Interpretation: Positive Depression Screening Follow-up: Existing condition Thrive Assessment: Date of Thrive Assessment Date Thrive assessed 04/22/23 01/26/24 08:53 Const General: healthy appearing, no acute distress, alert and awake Nutritional Appearance: well nourished Orientation/consciousness: oriented to person, oriented to place and oriented to time HENMT Ears: TM's normal bilaterally General nose exam: Normal nasal mucous membranes and turbinates present Eyes Conjunctivae: conjunctivae normal Sclerae: sclerae normal Pupils: Equal, round and reactive pupils present Neck Neck: Yes no lymphadenopathy and Yes no JVD Thyroid: Thyroid normal Carotids: no bruits Resp Effort & Inspection: normal respiratory effort and not tachypneic Auscultation: no crackles, no rales, no rhonchi and no wheezes Cardio Rate: regular rate Rhythm: regular rhythm Heart sounds: no murmurs and normal S1 and S2 GI Palpation (GI): Soft to palpation, nontender, no hepatomegaly and no splenomegaly Auscultation: normal bowel sounds Skin General skin exam: no rashes or lesions noted and dry skin Neuro General: oriented to person, oriented to place and oriented to time Cranial nerves: Yes Equal, round and reactive pupils present Speech: No Abnormal speech present Gait exam (Neuro): Normal gait present Motor exam (neuro): no tremor noted Extrem Right upper extremity: full ROM Left upper extremity: full ROM Right lower extremity: full ROM; no edema Left lower extremity: full ROM; no edema Psych Mental Status: mental status grossly normal Speech and movement: Normal speech and movement present Affect: normal affect Attitude: cooperative Thought process: Normal thought process present Coding Level of Care Code Est Pt Level 4 (44252) Diagnoses Primary hypertension I10 Hypertension type: primary hypertension Borderline high cholesterol E78.9 Assessment & Plan Assessment & Plan (1) HTN (hypertension): Code(s): I10 - Essential (primary) hypertension Category: Medical Qualifiers: Hypertension type: primary hypertension Qualified Code(s): I10 - Essential (primary) hypertension Plan: Patient's blood pressure slightly elevated today in office. She reports that blood pressures are ranging 110-120 systolic. Otherwise denies any headache, chest discomfort, dizziness or vision issues. She believes that lisinopril 5 mg is helpful for her and will continue this dose with continuing monitoring her blood pressure with goal blood pressure to be below 140/90 (2) Borderline high cholesterol: Code(s): E78.9 - Disorder of lipoprotein metabolism, unspecified Category: Medical Plan: Patient's most recent fasting lipid panel showing borderline total cholesterol. She will work on dietary and lifestyle modifications to reduce her cholesterol. She has been able to reduce her cholesterol with diet alone in the past. Goal total cholesterol to be below 200 Orders: Orders Lipid Panel 6 Months E78.5 - Hyperlipidemia, unspecified Complete Blood Count no Diff 6 Months E78.5 - Hyperlipidemia, unspecified Comprehensive [place]. Panel Fast 6 Months E78.5 - Hyperlipidemia, unspecified Hemoglobin A1c 6 Months R73.02 - Impaired glucose tolerance (oral) Referrals Dermatology Referral L98.9 - Disorder of the skin and subcutaneous tissue, unspecified Medications: New cyclobenzaprine 10 mg PO BID PRN 14 tabs 0RF muscle spasm 7 days M54.9 - Dorsalgia, unspecified Patient Instructions: Goal: Blood pressure to remain below 140/90 Barriers: Adherence to physical activity and healthy eating habits
== END 2024-01-26 09:26 | disposition home or self-care (01) ==
PROVIDERS: PCP Physician Assistant; Visit Provider Physician Assistant
DX: I10 Essential (primary) hypertension (principal); E78.9 Disorder of lipoprotein metabolism, unspecified

== ENCOUNTER → 2024-01-26 08:43 | Outpatient (BNVA) | payer BC, SELFPAY | PROVIDERS: PCP Physician Assistant; Visit Provider Physician Assistant ==

== ENCOUNTER 2024-08-25 07:28 | Outpatient (REF) | payer BC, SELFPAY | END 2024-08-25 07:29 | disposition home or self-care (01) | LOC: HO.MAMMO 07:28 | PROVIDERS: PCP Internal Medicine; Visit Provider Internal Medicine | DX: Z12.31 Encounter for screening mammogram for malignant neoplasm of breast (principal) | CPT/HCPCS: 77063; 77067 ==

== ENCOUNTER → 2024-08-25 07:30 | Outpatient (BNV) | payer BC, SELFPAY | PROVIDERS: PCP Internal Medicine; Visit Provider Internal Medicine | DX: Z12.31 Encounter for screening mammogram for malignant neoplasm of breast (principal) | CPT/HCPCS: 77063; 77067 ==

== ENCOUNTER 2025-03-29 14:21 | Outpatient (AMB) | payer BC, SELFPAY ==
--- NOTE | 2025-03-29 14:42 | A.OFFPC_ITS ---
Vital Signs 03/29/25 14:43 Height 5 ft 4 in Weight 231 lb BMI 39.6 BP 132/88 Blood Pressure Location Lt brachial Position Sitting Pulse 74 Pulse Source Pulse Oximeter Pulse Oximetry (%) 98 Oxygen Delivery Method Room Air Intake Visit Reasons: annual exam Allergies bupropion (From WELLBUTRIN) Allergy (Severe, Verified 03/29/25 14:52) HIVES lisinopril Adverse Reaction (Intermediate, Verified 03/29/25 15:07) Fatigued Medication List - Last Reconciled 03/29/25 by Rickey Sin PA-C calcium carbonate (Calcium 500) 500 mg PO DAILY cyclobenzaprine 10 mg PO BID PRN 7 days escitalopram oxalate 20 mg PO DAILY 90 days escitalopram oxalate 10 mg PO DAILY 90 days lisinopril 5 mg PO DAILY 90 days loratadine (Allergy Relief (loratadine)) 10 mg PO DAILY magnesium gluconate 500 mg PO BEDTIME multivitamin 1 tab PO DAILY Tobacco use date assessed: 03/29/25 Dental Screening Dental Screen Date: 03/29/25 Did you have a dental visit in the last 12 months?: Yes Did you have a dental problem in the last 6 months where you did not have access to dental care?: No Was dental information given to patient?: Patient has dentist HPI annual exam HPI Details Patient is a 54-year-old female here today for a routine annual physical. Patient's past medical history significant for obesity, hypertension, borderline high cholesterol, generalized anxiety disorder and depression.. . Hypertension: Patient's blood pressu re continues to be elevated, reports she had a frustrating morning and her stresses pretty elevated. She has been monitoring her blood pressure at home and notes 110s to 120 systolic. Continues on lisinopril 5 mg daily which he reports works well for her.. .. Borderline high cholesterol: Most recent fasting lipid panel showing borderline high cholesterol. She does admit to some dietary indiscretion as she does have GI problems which causes her to modify her diet and certain ways. .. Class 2 obesity: Has noted weight gain since last office visit .. Depression/ anxiety: Has been fairly stable with current dose of SSRI therapy. She does report having supportive family and friends. Not interested in formal cognitive behavioral therapy at this time. Colon cancer screening: Colonoscopy done in 2021, hyperplastic polyp repeat 10 years Mammogram: Done August 2024- BI-RADS 1 vaccine : Up-to-date with COVID vaccine, up-to-date with flu vaccine, considering shingles. Needs Tdap vaccine PFSH Medical History Enlarged uterus Dyslipidemia Polyarthralgia Right hip pain Right knee pain Upper back pain Right shoulder pain Neck pain Impaired glucose tolerance Anxiety Seasonal allergies Depression Surgical History History of section History of appendectomy Family History Father Pulmonary fibrosis determined by high resolution computed tomography Mother No problems noted. Paternal Grandmother Stroke Maternal Grandmother Lung cancer Maternal Aunt Lung cancer Maternal Uncle Bladder cancer Family/Other FH: mental illness Social History (Updated 03/29/25 @ 15:00 by Rickey Sin PA-C) Housing: House Alcohol intake: current Alcohol intake frequency: holidays/special occasions only Alcohol type: wine Patient Tobacco Use Status: Former Tobacco user Tobacco use type: Cigarette Years Smoked: 23 e-Cigarette/Vaping Use: Never Used Second Hand Smoke Exposure: No service: No Current occupational status: unemployed Cognitive needs: No Hearing needs: No Vision needs: Yes Questionnaire PHQ-9 Over the last 2 weeks, how often have you been bothered by any of the following problems? 1. Little interest or pleasure in doing things: not at all 2. Feeling down, depressed, or hopeless: several days 3. Trouble falling or staying asleep, or sleeping too much: not at all 4. Feeling tired or having little energy: several days 5. Poor appetite or overeating: not at all 6. Feeling bad about yourself - or that you are a failure or have let yourself or your family down: not at all 7. Trouble concentrating on things, such as reading the newspaper or watching television: not at all 8. Moving or speaking so slowly that other people could have noticed. Or the opposite - being so fidgety or restless that you have been moving around a lot more than usual: not at all 9. Thoughts that you would be better off or of hurting yourself in some way: not at all Total score: 2 Depression Screening Interpretation: Positive Depression Screening Done: Yes Source: Developed by Drs. Jesse Young, Irena Renteria, Carlton Hunter and colleagues, with an educational jerica from [employer]. Thrive Questionnaire Date Thrive assessed: 03/29/25 I am a: Patient What is your living situation today?: I have a steady place to live Within the past 12 months, did the food you bought not last and you didn't have the money to get more?: Never true Within the past 12 months, did you worry whether your food would run out before you got money to buy more?: Never true Do you have trouble paying for medicines?: No Do you have trouble getting transportation to medical appointments?: No Do you have trouble paying your heating and electricity bill?: No Do you have trouble taking care of your child, family member or friend?: No Do you have trouble with day-to-day activities such as bathing, preparing meals, shopping, managing finances, etc.?: No Are you currently unemployed and looking for a job?: Yes Are you interested in more education?: No Please select the resources that you would like help with: None Currently or been in a relationship where the following occur: I choose not to answer THRIVE Score: 0 AUDIT C Alcohol Use Questionnaire (AUDIT-C) 1. How often do you have a drink containing alcohol?: Monthly or less 2. How many drinks containing alcohol do you have on a typical day when you are drinking?: 1 or 2 3. How often do you have six or more drinks on one occasion?: Never Total Score: 1 NELI-7 AMB Questionnaire NELI-7 Date NELI - 7 assessed: 04/22/23 Feeling nervous, anxious, or on edge: 1 = Several days Not being able to stop or control worryin = Several days Worrying too much about different things: 1 = Several days Trouble relaxin = Several days Being so restless that it is hard to sit still: 1 = Several days Becoming easily annoyed or irritable: 1 = Several days Feeling afraid as if something awful might happen: 0 = Not at all Total NELI-7 score (0-4 normal; 5-9 mild; 10-14 moderate; 15-21 severe): 6 Source: Developed by Drs. Jesse Young, Irena Renteria, Carlton Hunter and colleagues, with an educational jerica from [employer]. Physical exam (Primary Care) Vital Signs: Last Vital Signs Pulse 74 03/29/25 14:43 BP 132/88 03/29/25 14:43 Pulse Ox 98 03/29/25 14:43 Oxygen Delivery Method Room Air 03/29/25 14:43 BMI result Body Mass Index 39.6 Tobacco/Smoking Status: Tobacco use Status Tobacco use date assessed 03/29/25 03/29/25 14:48 Patient Tobacco Use Status Former Tobacco user 03/29/25 15:00 Tobacco use type Cigarette 03/29/25 15:00 e-Cigarette/Vaping Use Never Used 03/29/25 15:00 PHQ-9: PHQ-9 Score PHQ-9: Total score 2 03/29/25 14:53 Depression Screening Interpretation: Positive Thrive Assessment: Date of Thrive Assessment Date Thrive assessed 03/29/25 03/29/25 14:48 Currently or been in a relationship where the following occur: I choose not to answer Immunizations Boostrix Tdap 2.5 Lf unit-8 mcg-5 Lf/0.5 mL intramuscular syringe Performing Provider: Rickey Sin PA-C [facility] Administered by: Leena Sanders RN on 03/29/25 15:41 Dose Route Admin Location Dispensed Lot Number Expiration Date NDC Transaction Manager 0.5 mL IM Left Deltoid 0.5 mL [id number] 07/18/26 [id number] [employer] Total Dispensed Waste 0.5 mL 0 % VIS Given Date VIS Provided VIS Publication Date 03/29/25 Single Vaccine 20 Eligibility Eligibility Date Funding Source Not [facility] Eligible 03/29/25 Private Coding Diagnoses Primary hypertension I10 Hypertension type: primary hypertension Borderline high cholesterol E78.9 Annual physical exam Z00.00 MDD (major depressive disorder), recurrent episode, moderate F33.1 Synovial cyst of right wrist M71.331 Assessment & Plan Assessment & Plan (1) HTN (hypertension): Code(s): I10 - Essential (primary) hypertension Category: Medical Qualifiers: Hypertension type: primary hypertension Qualified Code(s): I10 - Essential (primary) hypertension Plan: Patient's blood pressure slightly elevated today in office. She reports that blood pressures are ranging 110-120 systolic. Otherwise denies any headache, chest discomfort, dizziness or vision issues. She believes that lisinopril 5 mg is helpful for her and will continue this dose with continuing monitoring her blood pressure with goal blood pressure to be below 140/90 (2) Borderline high cholesterol: Code(s): E78.9 - Disorder of lipoprotein metabolism, unspecified Category: Medical Plan: Patient's most recent fasting lipid panel showing borderline total cholesterol. She will work on dietary and lifestyle modifications to reduce her cholesterol. She has been able to reduce her cholesterol with diet alone in the past. Goal total cholesterol to be below 200 (3) Annual physical exam: Code(s): Z00.00 - Encounter for general adult medical examination without abnormal findings Category: Medical (4) MDD (major depressive disorder), recurrent episode, moderate: Code(s): F33.1 - Major depressive disorder, recurrent, moderate Category: Medical (5) Synovial cyst of right wrist: Code(s): M71.331 - Other bursal cyst, right wrist Category: Medical Orders: Orders Hemoglobin A1c Today R73.02 - Impaired glucose tolerance (oral) Complete Blood Count no Diff Today R73.02 - Impaired glucose tolerance (oral) Comprehensive Independence. Panel Fast Today R73.02 - Impaired glucose tolerance (oral) TDaP Immunization Today Z23 - Encounter for immunization Lipid Panel Today E78.5 - Hyperlipidemia, unspecified
[2025-03-29 14:43] VITALS: BP 132/88; PULSE 74; O2SAT 98; BMI 39.6
== END 2025-03-29 15:40 | disposition home or self-care (01) ==
LOC: HO.HMCH 14:22
PROVIDERS: PCP Internal Medicine; Visit Provider Physician Assistant
DX: Z23 Encounter for immunization (principal)

== ENCOUNTER → 2025-03-29 14:21 | Outpatient (BNVA) | payer BC, SELFPAY | PROVIDERS: PCP Internal Medicine; Visit Provider Physician Assistant | DX: Z23 Encounter for immunization (principal); Z00.00 Encounter for general adult medical examination without abnormal findings; I10 Essential (primary) hypertension; E78.9 Disorder of lipoprotein metabolism, unspecified; F33.1 Major depressive disorder, recurrent, moderate; M71.331 Other bursal cyst, right wrist; E66.812 Obesity, class 2; Z68.39 Body mass index [BMI] 39.0-39.9, adult; Z79.899 Other long term (current) drug therapy | CPT/HCPCS: 90471; 90715; 96127 ==